=== PATIENT | male | born 1950 | race Hispanic/Latino ===

== ENCOUNTER 2018-09-09 09:58 | Emergency (ER) | payer MEDICARE ==
--- NOTE | 2018-09-09 10:14 | ED PDOC ---
Arrival/HPI - General Time Seen by Provider: 09/09/18 10:04 Historian: Patient - History of Present Illness Narrative History of Present Illness (Text): 09/09/18 10:05 68 year old male, with no significant past medical history, presents to the emergency department complaining of left-side facial droop that began 2 days ago. Patient denies any numbness to the face, no leg or arm numbness/weakness, any change in taste sensation, fever, chills, chest pain, shortness of breath, back pain, neck pain, headache, dizziness, or any other complaints. PMD: None Past Medical History - Provider Review Nursing Documentation Reviewed: Yes Family/Social History - Physician Review Nursing Documentation Reviewed: Yes Family/Social History: No Known Family HX Allergies/Home Meds Allergies/Adverse Reactions: Allergies No Known Allergies Allergy (Verified 09/09/18 10:14) Review of Systems - Physician Review All systems were reviewed & negative as marked: Yes - Review of Systems Constitutional: absent: Fevers Cardiovascular: absent: Chest Pain Physical Exam - Physical Exam Narrative Physical Exam (Text): Constitutional: No acute distress. Head: Normocephalic. Atraumatic. Eyes: PERRL. ENT: Moist mucous membranes. Neck: Supple. Cardiovascular: Regular rate. Chest: No tenderness. Respiratory: Clear to auscultation bilaterally. GI: Soft. Nontender. Nondistended. Back: No CVA tenderness. Musculoskeletal: No tenderness or swelling of extremities. Skin: No rash. Neurologic: Alert, Oriented x3. Facial droop left-sided that does not spare the forehead. Otherwise CN II-XII Intact. Extremities motor function 5/5 x4. Sensation to light touch intact bilaterally. Gait normal. Vital Signs Reviewed: Yes Medical Decision Making ED Course and Treatment: 09/09/18 10:05 Impression: 68 year old male presents complaining of left-sided facial droop that began 2 days ago and does not spare the forehead. Plan: -- Prednisone, acyclovir, eye drops, eye ointment for bedtime, ophtho follow up, instructed to return to emergency department immediately for any weakness or other neurological symptoms. - Scribe Statement The provider has reviewed the documentation as recorded by the Francia Xiao Provider Scribe Attestation: All medical record entries made by the Scribe were at my direction and personally dictated by me. I have reviewed the chart and agree that the record accurately reflects my personal performance of the history, physical exam, medical decision making, and the department course for this patient. I have also personally directed, reviewed, and agree with the discharge instructions and disposition. Disposition/Present on Arrival - Present on Arrival Any Indicators Present on Arrival: No - Disposition Have Diagnosis and Disposition been Completed?: Yes Diagnosis: Helm's palsy Disposition: HOME/ ROUTINE Disposition Time: 10:44 Patient Plan: Discharge Condition: STABLE Discharge Instructions (ExitCare): Helm's Palsy Prescriptions: RX: Acyclovir 400 mg PO 5XD #27 tablet Glycerin/Propylene Glycol [Artificial Tears Drops] 1 drop OS Q1H #30 ml Mineral Oil/Petrolatum,White [Systane Nighttime Eye Oint] 1 appl OS QPM #3.5 g RX: Prednisone [Deltasone] 3 tab PO DAILY #21 tablet Referrals: Cristiano Sierra MD [Staff Provider] - Follow up with primary Forms: [employer] [place] ([place]ican)
[2018-09-09 11:05] VITALS: BP 159/87; PULSE 92; RESP 18
[2018-09-09 11:06] VITALS: TEMP 98; O2SAT 97
== END 2018-09-09 11:17 | disposition home or self-care (01) ==
LOC: ED 09:58
DX: G51.0 Bell's palsy (principal)
CPT/HCPCS: 99284; J8499

== ENCOUNTER 2018-11-29 19:27 | Inpatient (IN) | payer MEDICARE, OTHER ==
--- NOTE | 2018-11-29 20:26 | ED PDOC ---
Arrival/HPI - General Chief Complaint: Alcohol Ingestion Time Seen by Provider: 11/29/18 19:43 Historian: Patient - History of Present Illness Narrative History of Present Illness (Text): 11/29/18 20:22 68 year old male, whose past medical history includes brothers's palsy, presents to the emergency department for evaluation, status post, being found by neighbor in basement, possibly intoxicated. Patient had urinated on self. Patient states he currently feels fine. Patient admits to drinking. Patient states he doesn't know how he got on the floor. Patient informs being seen 2 months prior and being treated for brothers's palsy. Patient informs of residual left-sided facial palsy stigmata. Patient denies any headache, chest pain, shortness of breath, focal weakness, back pain, neck pain, or any other complaint. Time/Duration: Prior to Arrival Symptom Onset: Sudden Symptom Course: Unchanged Activities at Onset: Light Past Medical History - Provider Review Nursing Documentation Reviewed: Yes - Infectious Disease Hx of Infectious Diseases: None - Psychiatric Hx Substance Use: No - Anesthesia Hx Anesthesia: No Hx Anesthesia Reactions: No Hx Malignant Hyperthermia: No Family/Social History - Physician Review Nursing Documentation Reviewed: Yes Family/Social History: No Known Family HX Smoking Status: Never Smoked Hx Alcohol Use: No Hx Substance Use: No Allergies/Home Meds Allergies/Adverse Reactions: Allergies No Known Allergies Allergy (Verified 09/09/18 10:14) Review of Systems - Physician Review All systems were reviewed & negative as marked: Yes - Review of Systems Respiratory: absent: SOB Cardiovascular: absent: Chest Pain Musculoskeletal: absent: Back Pain, Neck Pain Neurological: Facial Droop (chronic). absent: Focal Weakness Physical Exam Vital Signs Reviewed: Yes Vital Signs Temp Pulse Resp BP Pulse Ox 11/29/18 19:39 98.3 F 106 H 18 172/77 H 95 Temperature: Afebrile Blood Pressure: Hypertensive Pulse: Tachycardic Respiratory Rate: Normal Appearance: Positive for: Well-Appearing, Non-Toxic, Comfortable Pain Distress: None Mental Status: Positive for: Alert and Oriented X 3 Finger Stick Blood Glucose: 108 - Systems Exam Head: Present: Atraumatic, Normocephalic Pupils: Present: PERRL Extroacular Muscles: Present: EOMI Conjunctiva: Present: Normal Ears: Present: NORMAL TM Mouth: Present: Moist Mucous Membranes Neck: Present: Normal Range of Motion Respiratory/Chest: Present: Clear to Auscultation, Good Air Exchange. No: Respiratory Distress, Accessory Muscle Use Cardiovascular: Present: Regular Rate and Rhythm, Normal S1, S2. No: Murmurs Abdomen: No: Tenderness, Distention, Peritoneal Signs Back: Present: Normal Inspection Upper Extremity: Present: Normal Inspection. No: Cyanosis, Edema Lower Extremity: Present: Normal Inspection. No: Edema Neurological: Present: GCS=15, CN II-XII Intact, Speech Normal, Motor Func Grossly Intact, Normal Sensory Function, Other (Left-sided facial droop invlolving left-sided frontalis muscle consistent with brothers's palsy) Skin: Present: Warm, Dry, Normal Color. No: Rashes Psychiatric: Present: Alert, Oriented x 3, Normal Insight, Normal Concentration Medical Decision Making ED Course and Treatment: 11/29/18 20:31 Impression: 68 year old male presents status post being found on fall Plan: -- CT Head -- EKG -- CMP, Chem -- CBC, Platelets -- Chest X-ray -- Urinalysis -- Reassess and disposition Prior Visits: Notes and results from previous visits were reviewed. Patient last seen on 09/09/18, and was diagnosed with a brothers's palsy. Patient was discharged with medication. Progress Notes: 11/29/18 20:34 EKG Reviewed by me, shows: Sinus tachycardia @ 104bpm No acute changes 11/29/18 23:14 CT Head without Intravenous Contrast. CLINICAL HISTORY: Possible syncope, fall TECHNIQUE: Axial computed tomography images of the head/brain without intravenous contrast. 1117.51 mGy-cm COMPARISON: None provided. FINDINGS: BRAIN There is moderate periventricular deep and subcortical white matter hypodensity, compatible with moderate microvascular ischemic change. No evidence for acute intracranial hemorrhage. VENTRICLES: There is mild prominence of ventricles and sulci compatible with mild atrophy. ORBITS: The orbits are unremarkable. SINUSES AND MASTOIDS: Mild mucosal thickening of the anterior ethmoid air cells bilaterally. BONES: No evidence for displaced calvarial fracture. SOFT TISSUES: There is left supraorbital soft tissue swelling and a small cystic lesion measuring 1.4 cm in this region. This may represent hematoma. Mild mucosal thickening of both maxillary sinuses. MISCELLANEOUS: No evidence for acute territorial infarction. IMPRESSION: 1. No evidence for acute intracranial abnormality. 2. Moderate white matter ischemic disease. Mild atrophy. 2. There is left supraorbital subcutaneous soft tissue swelling and a small cystic lesion measuring 1.4 cm in this region. This may represent hematoma. 3. Additional and incidental findings as described. 11/30/18 00:[address] Masterson who accepts patient for alcohol intoxication and syncope - RAD Interpretation Radiology Orders: 11/29/18 19:48 HEAD W/O CONTRAST [CT] Stat CHEST PORTABLE [RAD] Stat - Scribe Statement The provider has reviewed the documentation as recorded by the Elvinibevelia Grey Provider Scribe Attestation: All medical record entries made by the Scribe were at my direction and personally dictated by me. I have reviewed the chart and agree that the record accurately reflects my personal performance of the history, physical exam, medical decision making, and the department course for this patient. I have also personally directed, reviewed, and agree with the discharge instructions and disposition. Disposition/Present on Arrival - Present on Arrival Any Indicators Present on Arrival: No History of DVT/PE: No History of Uncontrolled Diabetes: No Urinary Catheter: No History of Decub. Ulcer: No History Surgical Site Infection Following: None - Disposition Have Diagnosis and Disposition been Completed?: Yes Diagnosis: Alcohol intoxication, Syncope Disposition: HOSPITALIZED Disposition Time: 00:05 Patient Plan: Observation Patient Problems: Current Active Problems Problem Status Onset Alcohol intoxication Acute Syncope Acute Condition: STABLE Discharge Instructions (ExitCare): Syncope (ED) Forms: [employer] (Gibralt[place])
[2018-11-29 20:41] LABS: HEMOGLOBIN 16.2 g/dL (14.0-18.0); MEAN CELL VOLUME 94.8 fl (80.0-105.0); MEAN CORPUSCULAR HEMOGLOBIN 33.8 pg (25.0-35.0); MEAN CORPUSCULAR HGB CONC 35.7 g/dl (31.0-37.0); MEAN PLATELET VOLUME 9.2 fl (7.0-11.0); RBC 4.79 10^6/uL (3.5-6.1); RED CELL DISTRIBUTION WIDTH 13.6 % (11.5-14.5); WHITE BLOOD COUNT 9.6 10^3/uL (4.5-11.0)
[2018-11-29 20:46] LABS: INR 1.04; PARTIAL THROMBOPLASTIN TIME 30.8 Seconds (26.9-38.3); PROTHROMBIN TIME 11.5 SECONDS (9.4-12.5)
[2018-11-29 20:57] LABS: ALB/GLOB RATIO 1.4 (1.1-1.8); ALBUMIN 4.5 g/dL (3.0-4.8); ALT/SGPT 17 U/L (7-56); AST/SGOT 36 U/L (17-59); BLOOD UREA NITROGEN 14 mg/dL (7-21); CALCIUM 9.1 mg/dL (8.4-10.5); GFR NON-AFRICAN AMERICAN > 60
[2018-11-29 21:08] LABS: TROPONIN I 0.02 ng/mL
[2018-11-29 21:14] LABS: CK-MB 6.8 ng/mL (0.0-3.6)
--- NOTE | 2018-11-30 00:10 | HP ---
DATE OF EXAM: 11/29/2018 HISTORY OF PRESENT ILLNESS: The patient is a 68-year-old male, came to the emergency room by [facility]. The patient was found by the neighbor that the patient was found on the basement floor. The patient admits to drinking alcohol binging. The patient also has history of Helm's palsy according to the ER triage notes. CODE STATUS: Full code. LIVING WILL ADVANCE DIRECTIVE: None. Height is 6 feet 4 inches. Weight is 300 pounds. BMI is 36.5. HOME MEDICATIONS: Systane nighttime eye ointment, artificial tears, acyclovir, and prednisone which is being given to the patient for Helm's palsy. The patient was seen in the emergency room for the left Helm's palsy about 3 months ago in the emergency room. SOCIAL HISTORY: Positive for alcohol use. Questionable for smoking. OCCUPATIONAL HISTORY: Unknown. FAMILY HISTORY: Not available. PAST MEDICAL AND SURGICAL HISTORY: History of questionable hypertension, history of alcohol dependence, history of alcohol binging, and history of left Helm's palsy. The patient's past medical history is significant for left-sided facial Helm's palsy, history of Helm's palsy in 08/2018. PHYSICAL EXAMINATION: GENERAL: The patient was seen in stretcher in front of this bed #6 in the ER. The patient is lying in the bed. The patient is completely alert, awake, and responsive. Poor personal hygiene. Positive alcohol breath. VITAL SIGNS: T-max 98.3. Telemetry shows heart rate 106, blood pressure 172/77, respirations 18, and O2 sat 95%. HEENT: Head; normocephalic and atraumatic. HEENT examination shows pink conjunctivae. Dry oral mucosa. NECK: No neck rigidity. CHEST: Kyphosis. LUNGS: Show occasional rhonchi upper lung jamil. CARDIOVASCULAR: S1 and S2, regular rhythm with questionable soft systolic murmur left sternal border, left second intercostal space, right second intercostal space. Questionable soft systolic murmur. ABDOMEN: Obese. Positive bowel sounds. Mild epigastric periumbilical tenderness. No palpable hepatosplenomegaly. GENITALIA: Male. RECTAL: Deferred. EXTREMITIES: Shows some swelling of the lower extremity. No pitting edema noted. MUSCULOSKELETAL: Shows a body mass index of 37. NEUROLOGIC: The patient is alert, awake, responsive, and follows command. Moves upper and lower extremity without assistance. Gait examination is not tested. DIAGNOSTIC DATA: CBC from 11/29/2018 within normal limit. PT/PTT is normal. Chemistry significant for CO2 of 20. CPK is 689. Troponin is negative. LFTs are normal. BUN and creatinine is 14 and 0.1. Urine drug screen pending. Alcohol level 191. The patient's EKG is pending. CT of the head was done after the evaluation by the ER physician. CAT scan of the head was done, which was reviewed. The preliminary readings were reviewed for the CAT scan. The patient was seen by the emergency room physician. IMPRESSION AND PLAN: 1. Questionable syncope versus fall. 2. Questionable urinary incontinence. 3. Acute alcohol intoxication and dependence. 4. History of left Helm's palsy. 5. Left facial and nasolabial fold flattening. 6. Sinus tachycardia. 7. Poor personal hygiene. 8. Hypertension. 9. Rhabdomyolysis with elevated CPK. 10. Acute alcohol intoxication with alcohol level of 191. 11. Moderate microvascular ischemic disease of the brain with periventricular deep and subcortical white matter hypodensities. 12. Ventriculomegaly with cerebral cortical atrophy of the brain. 13. Ethmoid air cell mucosal thickening. 14. Left supraorbital soft tissue swelling and cystic lesion, possible left supraorbital hematoma. 15. Bilateral maxillary sinus mucosal thickening. 16. Status post fall. 17. Questionable syncope. 18. Questionable alcohol-related seizure. 19. Alcohol use disorder. Plan at this time, the patient is pending further ER evaluation . After further ER evaluation, the patient will be considered for admission to telemetry unit with neuro checks and seizure precautions. The patient will be started on alcohol withdrawal protocol and CIWA protocol. Neuro checks and seizure precautions will be ordered. The patient will be observed for delirium tremens. At present, the patient is awaiting for a telemetry bed and further evaluation.. The patient's further management will be dependent upon the patient's clinical condition, hemodynamic status, and as per the patient response to therapeutic intervention, as per the patient's diagnostic test results, and as per recommendation by all the physician involved in the care of the patient. In addition, the patient will undergo further diagnostic therapeutic intervention and Neurology consultation. The patient will be considered for EEG of the brain, vitamin B12, folate, drug screen will be ordered, lipid panel will be ordered, thyroid panel will be ordered, RPR will be ordered, EEG will be ordered, carotid Dopplers will be ordered, echocardiogram will be ordered, and MRI and MRA of the brain will be ordered. Neurology and Cardiology consultation will be ordered. At present, the patient was seen and examined in front of the stretcher 6. The patient is on a desk stretcher. Dictated and electronically signed, not read. Fritz Masterson MD
--- NOTE | 2018-11-30 02:01 | CP.PCM.HP ---
History of Present Illness - History of Present Illness History of Present Illness: Marielena Segura, PGY2, H&P for Dr Masterson: CC: fall 68 year old male, with PMH alcoholism, HTN, left sided brothers's palsy, presents for fall at 5 PM today. He had a pint of vodka and 1 beer prior to the fall. Patient states that he was going down the stairs, and just remembers waking up after the syncopal episode. Patient does not recall how long he was down. Patient's neighbor called the ambulance and helped patient wake up. Upon waking up, patient states that he urinated upon himself. Denies tongue biting, shaking movements of her extremities, focal deficits, slurred speech, headache, nausea, vomiting, chest pain, sob, back pain. 12 point ROS obtained and negative, except as per HPI. 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 Drink 1 pint of vodka daily for past 3-4 years, smokes 4 cigars for past 10 years. Earlier, smoked 1 ppd for 25 years. Denies current recreational drug use. PMD: none Present on Admission - Present on Admission Any Indicators Present on Admission: No History of DVT/PE: No History of Uncontrolled Diabetes: No Urinary Catheter: No Decubitus Ulcer Present: No Review of Systems - Review of Systems All systems: reviewed and no additional remarkable complaints except Review of Systems: as per HPI Past Patient History - Infectious Disease Hx of Infectious Diseases: None - Past Social History Smoking Status: Never Smoked - PSYCHIATRIC Hx Substance Use: No - SURGICAL HISTORY Hx Surgeries: No - ANESTHESIA Hx Anesthesia: No Hx Anesthesia Reactions: No Hx Malignant Hyperthermia: No Meds Allergies/Adverse Reactions: Allergies Allergy/AdvReac Type Severity Reaction Status Date / Time No Known Allergies Allergy Verified 09/09/18 10:14 Physical Exam - Constitutional Appears: Non-toxic, No Acute Distress - Head Exam Head Exam: NORMOCEPHALIC Additional comments: + left supraorbital protuberance/likely hematoma - Eye Exam Eye Exam: EOMI, PERRL. absent: Conjunctival injection, Nystagmus, Scleral icterus Pupil Exam: NORMAL ACCOMODATION, PERRL. absent: Irregular, Unequal - ENT Exam ENT Exam: Mucous Membranes Dry - Neck Exam Neck exam: Positive for: Full Rom - Respiratory Exam Respiratory Exam: Clear to Auscultation Bilateral, NORMAL BREATHING PATTERN. absent: Accessory Muscle Use, Rhonchi, Wheezes - Cardiovascular Exam Cardiovascular Exam: RRR, +S1, +S2. absent: Systolic Murmur - GI/Abdominal Exam GI & Abdominal Exam: Normal Bowel Sounds, Soft. absent: Distended, Organomegaly, Rebound, Tenderness - Extremities Exam Extremities exam: Positive for: normal inspection. Negative for: calf tenderness, pedal edema - Back Exam Back exam: NORMAL INSPECTION - Neurological Exam Neurological exam: Alert, Oriented x3 - Psychiatric Exam Psychiatric exam: Normal Affect - Skin Skin Exam: Dry, Normal Color, Warm Results - Vital Signs Recent Vital Signs: Last Vital Signs Temp 98.3 F 11/30/18 01:07 Pulse 100 H 11/30/18 01:07 Resp 18 11/30/18 01:07 BP 153/92 H 11/30/18 01:07 Pulse Ox 96 11/30/18 01:07 - Labs Result Diagrams: 11/29/18 20:30 11/29/18 20:30 Labs: Laboratory Results - last 24 hr 11/29/18 11/29/18 11/29/18 20:30 20:30 20:30 WBC RBC Hgb Hct MCV MCH MCHC RDW Plt Count MPV PT 11.5 INR 1.04 APTT 30.8 Sodium 143 Potassium 3.7 Chloride 109 H Carbon Dioxide 20 L Anion Gap 17 BUN 14 Creatinine 1.0 Est GFR ( Amer) > 60 Est GFR (Non-Af Amer) > 60 Random Glucose 101 Calcium 9.1 Total Bilirubin 0.5 AST 36 ALT 17 Alkaline Phosphatase 86 Lactate Dehydrogenase 548 Total Creatine Kinase 689 H CK-MB (CK-2) 6.8 H CK-MB (CK-2) % 1.0 L Troponin I 0.02 Total Protein 7.7 Albumin 4.5 Globulin 3.2 Albumin/Globulin Ratio 1.4 Alcohol, Quantitative 191 H 11/29/18 20:30 WBC 9.6 RBC 4.79 Hgb 16.2 Hct 45.4 MCV 94.8 MCH 33.8 MCHC 35.7 RDW 13.6 Plt Count 240 MPV 9.2 PT INR APTT Sodium Potassium Chloride Carbon Dioxide Anion Gap BUN Creatinine Est GFR ( Amer) Est GFR (Non-Af Amer) Random Glucose Calcium Total Bilirubin AST ALT Alkaline Phosphatase Lactate Dehydrogenase Total Creatine Kinase CK-MB (CK-2) CK-MB (CK-2) % Troponin I Total Protein Albumin Globulin Albumin/Globulin Ratio Alcohol, Quantitative Assessment & Plan - Assessment and Plan (Free Text) Assessment: This is a 68 year old male with PMH HTN, alcohol dependence, Brothers's palsy, is here for fall, alcohol intoxication: Fall: 2/2 likely alcohol intoxication vs mechanical fall vs neurocardiogenic vs arrhythmia vs carotid stenosis vs cva - EKG shows: Sinus tachycardia @ 104bpm. No acute changes. - CT head shows no acute intracranial abnormalities. Left supraorbital soft tissue swelling and a small cystic lesion measuring 1.4 cm in this region - hematoma? - Orthostatic vitals, MRI brain, MRA head, carotid and vertebral duplex, EEG, Echo - neurochecks - CXR negative. - Neurology consulted. f/u recs. - Cardiology consulted. F/u recs. - tele monitoring Alcohol intoxication/withdrawal: - Elevated alcohol level on admission - Librium 25 PO q4 prn, Ativan 1 IV q4 prn - Banana bag - MVT, thiamine, folate - CIWA protocol - seizure, aspiration precautions - monitor Elevated CPK: - patient relays a history of fall. - CPK 689 - Banana bag @ 100 cc/hr - monitor CPK in AM. PPX: Lovenox subq, protonix. Case seen and discussed with Dr Masterson.
[2018-11-30 02:13] LABS: URINE BILIRUBIN NEGATIVE (NEGATIVE); URINE BLOOD MODERATE (NEGATIVE); URINE GLUCOSE (UA) NEGATIVE (NEGATIVE); URINE LEUKOCYTE ESTERASE MODERATE Leu/uL (NEGATIVE); URINE PROTEIN NEGATIVE mg/dL (<30 mg/dL); URINE UROBILINOGEN 0.2 E.U./dL (<1 E.U./dL)
[2018-11-30 02:20] LABS: URINE APPEARANCE CLOUDY (CLEAR); URINE COLOR YELLOW (YELLOW)
[2018-11-30 02:26] LABS: URINE BACTERIA MANY /hpf; URINE EPITHELIAL CELLS 0 - 2 /hpf (0-5); URINE WBC 15 - 20 /hpf (0-6)
[2018-11-30] MEDS: Folic Acid 1 MG, Thiamine 100 MG, Multivitamin (MVI) 10 ML in Dextrose 5% In Water 1,00... IV SCH ×2 (02:34→09:40)
[2018-11-30 03:28] LABS: BARBITURATES, UR NEGATIVE (NEGATIVE); BENZODIAZEPINES, UR NEGATIVE (NEGATIVE); OPIATES, UR NEGATIVE (NEGATIVE); PHENCYCLIDINE, UR NEGATIVE (NEGATIVE)
[2018-11-30 04:53] LABS: MEAN CELL VOLUME 94.4 fl (80.0-105.0); MEAN CORPUSCULAR HEMOGLOBIN 33.3 pg (25.0-35.0); MEAN CORPUSCULAR HGB CONC 35.3 g/dl (31.0-37.0); MEAN PLATELET VOLUME 9.3 fl (7.0-11.0); RBC 4.8 10^6/uL (3.5-6.1); RED CELL DISTRIBUTION WIDTH 13.6 % (11.5-14.5); WHITE BLOOD COUNT 11.8 10^3/uL (4.5-11.0)
[2018-11-30 05:11] LABS: LDL CHOLESTEROL 151 mg/dL (0-129)
[2018-11-30 05:12] LABS: TROPONIN I 0.03 ng/mL
[2018-11-30 05:18] LABS: FREE T4 0.86 ng/dL (0.78-2.19)
[2018-11-30 05:43] LABS: ALB/GLOB RATIO 1.3 (1.1-1.8); ALBUMIN 4.6 g/dL (3.0-4.8); ALT/SGPT 27 U/L (7-56); AST/SGOT 108 U/L (17-59); BILIRUBIN,DIRECT 0.2 mg/dL (0.0-0.4); BLOOD UREA NITROGEN 13 mg/dL (7-21); CALCIUM 9.5 mg/dL (8.4-10.5); GFR NON-AFRICAN AMERICAN > 60; HDL CHOLESTEROL 36 mg/dL (29-60)
--- NOTE | 2018-11-30 07:59 | CT ---
Date of service: 11/29/2018 PROCEDURE: CT HEAD WITHOUT CONTRAST. HISTORY: possible syncope COMPARISON: None available. TECHNIQUE: Axial computed tomography images were obtained through the head/brain without intravenous contrast. Radiation dose: Total exam DLP = 1117.51 mGy-cm. This CT exam was performed using one or more of the following dose reduction techniques: Automated exposure control, adjustment of the mA and/or kV according to patient size, and/or use of iterative reconstruction technique. FINDINGS: HEMORRHAGE: No intracranial hemorrhage. BRAIN: No mass effect or edema. Chronic severe microvascular changes are seen in the basal ganglia and periventricular white matter. VENTRICLES: Unremarkable. No hydrocephalus. CALVARIUM: There is a left frontal scalp hematoma. No fracture PARANASAL SINUSES: Unremarkable as visualized. No significant inflammatory changes. MASTOID AIR CELLS: Unremarkable as visualized. No inflammatory changes. OTHER FINDINGS: The report concurs with the preliminary [facility] report IMPRESSION: No acute intracranial findings
[2018-11-30] MEDS: Pantoprazole 40 mg EC Tab PO SCH (08:03)
--- NOTE | 2018-11-30 08:25 | RAD ---
Date of service: 11/30/2018 HISTORY: HTN COMPARISON: No prior. TECHNIQUE: Chest PA and lateral FINDINGS: LUNGS: No active pulmonary disease. PLEURA: No significant pleural effusion identified. No pneumothorax apparent. CARDIOVASCULAR: No aortic atherosclerotic calcification present. Normal cardiac size. No pulmonary vascular congestion. OSSEOUS STRUCTURES: No significant abnormalities. VISUALIZED UPPER ABDOMEN: Normal. OTHER FINDINGS: None. IMPRESSION: No active disease.
[2018-11-30 08:26] LABS: CK MB% 0.4 % (2.5-3.0); CK-MB 20.1 ng/mL (0.0-3.6)
[2018-11-30] MEDS ORDERED: TDAP Vaccine 0.5 mL Syr IM ONE (08:45)
[2018-11-30 10:35] LABS: FREE T4 0.95 ng/dL (0.78-2.19)
[2018-11-30 10:49] LABS: T3 1.19 ng/mL (0.97-1.69)
[2018-11-30] MEDS: Mupirocin 2% Ointment 15 GM TUBE TOP SCH ×2 (11:00→18:01)
[2018-11-30] MEDS: Multivitamin With Minerals Tab PO SCH (11:48)
[2018-11-30] MEDS: Enoxaparin 40 mg Syringe SC SCH (11:48)
[2018-11-30] MEDS: Cefepime 1gm in NS 100ml 1 GM/100 ML BAG IVPB SCH ×3 (12:00→22:10)
[2018-11-30] MEDS ORDERED: Tetanus Immune Globulin 250 Units Inj IM ONE (12:00)
--- NOTE | 2018-11-30 12:07 | CARD ---
APPROVED REPORT Date of service: 11/30/2018 EKG Measurement Heart [id number] <Conclusion> Normal sinus rhythm Prolonged QT Abnormal ECG
--- NOTE | 2018-11-30 12:17 | CARD ---
APPROVED REPORT Date of service: 11/29/2018 EKG Measurement Heart [id number] <Conclusion> Sinus tachycardia Otherwise normal ECG
--- NOTE | 2018-11-30 13:03 | PN ---
DATE: 11/30/2018 SUBJECTIVE: The patient is seen in the emergency room holding area, bed 22. The patient is lying in the bed. PHYSICAL EXAMINATION: GENERAL: The patient is alert, awake, responsive, is able to follow simple commands. VITAL SIGNS: T-max 98.3, heart rate 105, blood pressure 177/97. HEAD: Normocephalic, atraumatic. HEENT: Positive right frontal contusion and bruising noted. LUNGS: Examination shows an occasional upper lung field rhonchi. No crackles, rales or wheezing. CARDIOVASCULAR: Shows S1, S2, tachycardic rhythm. Questionable soft systolic murmur left sternal border, right second intercostal space, left second intercostal space. ABDOMEN: Soft, obese. Positive bowel sound. No palpable hepatosplenomegaly. GENITALIA: Male. RECTAL: Deferred. EXTREMITIES: No pitting edema, no calf tenderness, no Homans' sign. Positive left knee abrasions noted. MUSCULOSKELETAL: Examination shows a body mass index of 36. VITAL SIGNS: T-max 98.3, heart rate 102 to 105, blood pressure 172/77, 153/92, 177 97, respirations 18, O2 sat 96%. LABORATORY DATA: The patient's lab data from November 30 is reviewed. WBC 11.8. Rest of the CBC is within normal limit. Sodium 141, potassium 3.8, chloride 109, CO2 of 20, anion gap 16, BUN 13, creatinine 0.9, GFR greater than 60, glucose 96, calcium 9.5, phosphorus 3.3, magnesium is 1.6, AST is 108. CPK has gone up to 4775. Troponin is 0.03, triglyceride 346, cholesterol 257, LDL 151. PSA is 4.6. Urinalysis, moderate blood, nitrite, many bacteria. Urine drug screen was negative. Alcohol level 191. The patient's chest x-ray, EKG reviewed. IMPRESSION: 1. Questionable syncope, status post fall. 2. Acute alcohol intoxication. 3. Tachycardia. 4. Hypertension. 5. Questionable impending delirium tremens versus alcohol withdrawal. 6. Mild leukocytosis. 7. Hypomagnesemia. 8. Transaminitis versus alcoholic hepatitis. 9. Rhabdomyolysis with elevated CPK of 4775. 10. Hypertriglyceridemia, hypercholesteremia with elevated LDL. 11. Elevated PSA of 4.6. 12. Questionable urinary tract infection with microscopic hematuria, pyuria, bacteriuria. 13. Acute alcohol intoxication. 14. Frontal forehead and left knee abrasion. 15. Unwitnessed fall versus questionable syncope. 16. Chronic severe microvascular ischemic disease of the basal ganglia and periventricular white matter. 17. Left frontal scalp hematoma. 18. Sinus tachycardia. 19. Gait dysfunction. 20. Deconditioned. PLAN: At this time, the patient has been ordered serial labs. Daily CPK, troponin has been ordered. The patient is awaiting for a telemetry bed. Repeat CPK and troponin has been ordered for the morning. Serial CMP, LFT, magnesium, phosphorus ordered, magnesium sulfate rider ordered, urine cultures ordered. Current consultation, Neurology, Cardiology, Psychiatry. TCU evaluation ordered. RPR and Lyme titers ordered. The patient is on Ativan 1 mg IV every 4 hours p.r.n., Bactroban cream to the affected area, Boostrix vaccine ordered, clonidine 0.1 mg every 4 hours p.r.n., Colace 100 three times a day, Desyrel 50 at bedtime p.r.n., Ecotrin 81 mg daily, folic acid 1 mg daily, Haldol 2 mg IM every 8 hours p.r.n., Librium 25 mg p.o. every 4 hours p.r.n., Lovenox 40 mg subcu daily magnesium sulfate 2 g rider x2 doses ordered, cefepime 1 g IV every 8 hours ordered for possible urinary tract infection, Protonix 40 mg daily. The patient is started on IV fluid 0.9 normal saline at 150 mL an hour, multivitamin 1 tablet daily Tylenol p.r.n., Valium 5 mg p.o. every 8 hours p.r.n., thiamine 100 mg daily, Zofran 4 mg IV every 4 hours p.r.n. The patient has completed banana bag of 1 liter. The patient has been ordered carotid vertebral Doppler, MRI, MRA of the brain, EKG, repeat echo with Doppler EEG ordered. The patient is on heart-healthy diet. The patient has been ordered SCDs. SAMMIE stockings, occupational therapy, physical therapy ordered. The patient's echo with Doppler EEG has been ordered. The patient has been ordered physical therapy, occupational therapy, ambulation therapy, gait training. The patient's further management will be dependent upon the patient's clinical condition, hemodynamic status and as per the patient's response to therapeutic intervention, as per the patient's diagnostic test results and as per recommendation by all the physicians involved in the care of the patient. Dictated and electronically signed, not read. Fritz Masterson MD
[2018-11-30 13:31] LABS: FOLATE 3.9 ng/mL
[2018-11-30] MEDS: Sodium Chloride 0.9% 1,000 ML IV SCH ×2 (13:38→22:12)
[2018-11-30] MEDS: Magnesium Sulfate 2 gm/50 ml 2 GM/50 ML BAG IVPB SCH ×2 (14:32→15:52)
[2018-11-30] MEDS ORDERED: Ergocalciferol 50,000 Intl Units Cap PO SCH (14:45)
--- NOTE | 2018-11-30 15:13 | CARD ---
APPROVED REPORT Date of service: 11/30/2018 EXAM: Two-dimensional and M-mode echocardiogram with Doppler and color Doppler. INDICATION Syncope 2D DIMENSIONS Left Atrium (2D)4.9 (1.6-4.0cm)IVSd1.6 (0.7-1.1cm) LVDd4.5 (3.9-5.9cm)PWd1.4 (0.7-1.1cm) LVDs3.0 (2.5-4.0cm)FS (%) 33.8 % LVEF (%)62.8 (>50%) M-Mode DIMENSIONS Aortic Root3.00 (2.2-3.7cm)Aortic Cusp Exc.2.30 (1.5-2.0cm) Aortic Valve AoV Peak Knwlwuph799.0cm/Dale Peak GR.8mmHg Mitral Valve MV E Rjjegojp96.7cm/sMV A Ucorgwvf674.0cm/sE/A ratio0.6 TDI E/Lateral E'0.0E/Medial E'0.0 LEFT VENTRICLE The left ventricle is normal size. There is mild concentric left ventricular hypertrophy. The left ventricular function is normal. The left ventricular ejection fraction is within the normal range. There is normal LV segmental wall motion. Transmitral Doppler flow pattern is Grade I-abnormal relaxation pattern. RIGHT VENTRICLE The right ventricle is normal size. The right ventricle is mildly hypertrophied. The right ventricular systolic function is normal. ATRIA The left atrium is mildly dilated. The right atrium size is normal. AORTIC VALVE The aortic valve is not well visualized. No aortic regurgitation is present. There is no aortic valvular stenosis. MITRAL VALVE The mitral valve is not well visualized. There is no mitral valve regurgitation noted. There is no mitral valve stenosis. TRICUSPID VALVE The tricuspid valve is normal in structure. There is no tricuspid valve regurgitation noted. GREAT VESSELS The aortic root is normal in size. The IVC is normal in size and collapses >50% with inspiration. PERICARDIAL EFFUSION There is a trace pericardial effusion. <Conclusion> Poor Echo window There is mild concentric left ventricular hypertrophy. The left ventricular function is normal. The left ventricular ejection fraction is within the normal range. There is normal LV segmental wall motion. Transmitral Doppler flow pattern is Grade I-abnormal relaxation pattern.
--- NOTE | 2018-11-30 18:38 | CON ---
DATE: 11/30/2018 NEUROLOGY CONSULTATION CHIEF COMPLAINT: Status post fall and syncope. HISTORY OF PRESENT ILLNESS: This is a 68-year-old man with history of chronic alcoholism, hypertension, left Helm's palsy, had a fall at 5 p.m yesterday when he had bathroom prior to his fall. He was going downstairs and waking up after syncopal episode, does not recall how he fell down. Currently, his CAT scan has showed no acute intracranial abnormalities. He denies any generalized tonic-clonic movements. It seems like he had syncopal motion from dehydration and acute alcohol intoxication. His labs, his alcohol level was 191. PAST MEDICAL HISTORY: As above. SOCIAL HISTORY: Drinks daily and he is a occasional smoker. No illicit drug use. FAMILY HISTORY: Noncontributory. ALLERGIES: NO KNOWN DRUG ALLERGIES. MEDICATIONS: Reviewed by nurses' reconciliation sheet. REVIEW OF SYSTEMS: Fourteen-point review of systems is negative except as per the HPI. LABORATORY DATA: Sodium is 141, potassium is 3.8, chloride is 109, carbon dioxide is 20, BUN of 13, creatinine 0.9, and random glucose 96. Triglycerides 347, cholesterol 257, LDL is 451, and vitamin D is 28.4 low. PHYSICAL EXAMINATION: GENERAL: The patient is seen up in bed in no acute distress. VITAL SIGNS: Temperature 98.2, pulse rate 100, blood pressure 153/92, respiratory rate 18, and oxygen saturation 97% on room air. HEENT: Head is atraumatic and normocephalic. PERRLA. Extraocular muscles intact. NECK: Supple. No JVD. No adenopathy noted. LUNGS: Clear to auscultation. No adventitious sounds. HEART: S1 and S2, normal rate and rhythm. No murmur, rubs, or gallops. ABDOMEN: Soft and nontender. Bowel sounds present. EXTREMITIES: No clubbing and no cyanosis. Peripheral pulses are 2+ bilaterally NEUROLOGIC: The patient is alert and oriented to person, place, month and year. Speech is fluent without any errors. Cranial nerves II through XII are intact. Motor exam; moves all extremities equally. Toes are downgoing bilaterally. Sensory exam; light touch, pinprick, proprioception and vibration are intact. decreased pinprick up to the calves bilaterally. Decreased vibration of the toes. DTRs are 2+ throughout and 1 at both knees and ankles. Coordination; [id number] is intact. No dysmetria noted. Gait is deferred for now. ASSESSMENT AND PLAN: This is a 68-year-old man with history of hypertension, alcohol dependence, left Helm's palsy in the past, status post fall, which is likely vasovagal syncope with a possible mechanical component from acute alcohol intoxication unlikely a seizure. RECOMMENDATIONS: At this time we recommend; 1. Orthostatic vital signs. 2. Fluid hydration. 3. Multiple vitamins, folate, and thiamine 100 mg p.o. daily. 4. Delirium precautions. 5. Librium 25 mg p.o. every 4 hours p.r.n. for alcohol withdrawal. No need for any unlikely an syncopal unlikely an epileptic event and recommended sleep hygiene. Thank you for this consult. Heber Liang MD
--- NOTE | 2018-11-30 20:34 | US ---
PROCEDURE: Carotid artery duplex ultrasound HISTORY: Carotid stenosis PHYSICIAN(S): Mason Ca MD. TECHNIQUE: Duplex sonography and color-flow Doppler were used to evaluate the carotid bifurcations and limited segments of the vertebral arteries bilaterally. FINDINGS: There is moderate to extensive smooth heterogeneous plaque noted at the carotid bifurcations bilaterally, greater on the left than the right. The peak systolic velocity in the proximal right internal carotid artery is 66 cm/sec. This corresponds to a 20 to 39% proximal right ICA stenosis. Normal systolic velocities are noted in the proximal right external carotid artery. There is antegrade flow in the small right vertebral artery. The peak systolic velocity in the proximal left internal carotid artery is 295 cm/sec. The end-diastolic velocity at this location is 81 cm/second. This corresponds to a 80 percent proximal left ICA stenosis. Normal systolic velocities are noted in the proximal left external carotid artery. There is blunted antegrade flow in the small left vertebral artery. IMPRESSION: 1. 80 percent proximal left ICA stenosis. This can be confirmed with CTA, MRA with jona, or conventional arteriography if clinically indicated 2. 20-39 percent proximal right ICA stenosis 3. Antegrade flow in bilateral small vertebral arteries
[2018-11-30 22:17] VITALS: BMI 36.5
[2018-11-30] MEDS ORDERED: Influenza Vaccine 60 mcg/0.5 mL SYR (4YR UP) IM ONE (22:17)
[2018-11-30] MEDS ORDERED: Pneumococcal 23-Valent Vaccine IM ONE (22:17)
[2018-12-01] MEDS: Cefepime 1gm in NS 100ml 1 GM/100 ML BAG IVPB SCH ×3 (06:50→21:06)
[2018-12-01] MEDS: Pantoprazole 40 mg EC Tab PO SCH (06:50)
[2018-12-01 07:11] LABS: TROPONIN I < 0.01 ng/mL
[2018-12-01 07:31] LABS: ALB/GLOB RATIO 1.2 (1.1-1.8); ALT/SGPT 36 U/L (7-56); AST/SGOT 104 U/L (17-59); BILIRUBIN,DIRECT 0.2 mg/dL (0.0-0.4); BLOOD UREA NITROGEN 15 mg/dL (7-21); CALCIUM 8.9 mg/dL (8.4-10.5); GFR NON-AFRICAN AMERICAN > 60
[2018-12-01] MEDS ORDERED: Potassium Chloride 40 mEq/30 ml LIQ UD PO ONE (08:23)
[2018-12-01 08:24] LABS: CK MB% 0.3 % (2.5-3.0); CK-MB 6.2 ng/mL (0.0-3.6)
[2018-12-01] MEDS ORDERED: Gadodiamide 287 MG/ML VIAL (20ML) IV ONE (09:38)
--- NOTE | 2018-12-01 10:05 | CARD ---
APPROVED REPORT Date of service: 12/01/2018 EKG Measurement Heart [id number] <Conclusion> Normal sinus rhythm Prolonged QT Abnormal ECG
[2018-12-01] MEDS: Multivitamin With Minerals Tab PO SCH (10:49)
[2018-12-01] MEDS: Enoxaparin 40 mg Syringe SC SCH (10:49)
[2018-12-01] MEDS: Mupirocin 2% Ointment 15 GM TUBE TOP SCH ×4 (10:51→17:07)
[2018-12-01] MEDS: Sodium Chloride 0.9% 1,000 ML IV SCH ×2 (12:02→23:46)
--- NOTE | 2018-12-01 13:17 | MRI ---
Date of service: 12/01/2018 PROCEDURE: MRI BRAIN WITH AND WITHOUT CONTRAST HISTORY: SYNCOPE COMPARISON: None available. TECHNIQUE: Multiplanar, multisequence MR images of the brain were obtained with and without intravenous contrast enhancement. 20 cc of Omniscan FINDINGS: HEMORRHAGE: None DWI: No evidence of an acute or early subacute infarction. BRAIN PARENCHYMA: No mass,mass effect or edema. Severe chronic microvascular changes are seen in the periventricular white matter and deep white matter. Microvascular changes are also seen in the neno. No acute findings. ENHANCEMENT: No abnormal intracranial enhancement. VENTRICLES: Unremarkable. No hydrocephalus. CRANIUM: Unremarkable. ORBITS: Grossly unremarkable. PARANASAL SINUSES/MASTOIDS: Clear VASCULAR SYSTEM: Skull base flow voids intact. OTHER FINDINGS: None . IMPRESSION: No acute intracranial findings.
--- NOTE | 2018-12-01 13:19 | MRI ---
Date of service: 12/01/2018 PROCEDURE: Magnetic Resonance Angiography Brain HISTORY: SYNCOPE COMPARISON: None available. TECHNIQUE: 3D time of flight MR angiography of the intracranial arteries was performed. Rotating maximum intensity projection images were generated. FINDINGS: INTERNAL CAROTID ARTERIES: Unremarkable. The skull base, petrous, cavernous and supraclinoid segments are bilaterally widely patient. ANTERIOR CEREBRAL ARTERIES: Unremarkable. A1 and A2 segments are widely patent. Smaller distal branches unremarkable, as visualized. MIDDLE CEREBRAL ARTERIES: Unremarkable. M1 and M2 segments are widely patent. Perisylvian branches grossly symmetric. POSTERIOR CIRCULATION: Basilar Artery: Unremarkable. Distal Vertebral Arteries: Unremarkable. Posterior Cerebral Arteries: Unremarkable. Posterior Inferior Cerebellar Arteries: Unremarkable. ANEURYSM/ VASCULAR MALFORMATIONS: None. OTHER FINDINGS: None. IMPRESSION: Unremarkable MR angiography of the brain.
--- NOTE | 2018-12-01 13:25 | MRI ---
Date of service: 12/01/2018 PROCEDURE: MR Angiography of the neck with and without contrast HISTORY: LEFT ICAS COMPARISON: Doppler ultrasound 11/30/2018 TECHNIQUE: Contrast enhanced and [id number] angiography of the neck was performed. Rotating 3D maximum intensity projection images of the cervical carotid and vertebral arteries were generated. 20 cc of Omniscan FINDINGS: RIGHT CAROTID ARTERIES: There is a mild stenosis of the proximal right internal carotid. The degree of stenosis is less than 40 percent. LEFT CAROTID ARTERIES: There is a moderate to severe stenosis of the proximal left internal carotid over a 12 mm segment. The degree of stenosis is probably greater than 80 percent. VERTEBRAL ARTERIES: Right Vertebral Artery: Normal. Left Vertebral Artery: Diffusely narrow left vertebral OTHER FINDINGS: None. IMPRESSION: There is a moderate to severe stenosis of the proximal left internal carotid over a 12 mm segment. The degree of stenosis is probably greater than 80 percent.
--- NOTE | 2018-12-01 14:27 | CP.PCM.PN ---
Subjective - Date & Time of Evaluation Date of Evaluation: 12/01/18 Time of Evaluation: 07:00 - Subjective Subjective: Patient seen and examined at bedside in no acute distress. Patient has no complaints from overnight. Denies fevers, chills, shortness of breath, headache, abdominal pain, nausea, vomiting, diarrhea. Objective - Vital Signs/Intake and Output Vital Signs (last 24 hours): Temp Pulse Resp BP Pulse Ox 97.6 F 71 20 150/88 97 12/01/18 08:30 12/01/18 08:30 12/01/18 08:30 12/01/18 08:30 12/01/18 08:30 Intake and Output: 12/01/18 12/01/18 06:59 18:59 Intake Total 400 Balance 400 - Medications Medications: Current Medications Acetaminophen (Tylenol 325mg Tab) 650 mg PO Q6 PRN PRN Reason: TEMP>=99.5F Acetaminophen (Tylenol 650 Mg Supp) 650 mg RC Q6H PRN PRN Reason: TEMP>=99.5F Aspirin (Ecotrin) 81 mg PO DAILY [facility] Last Admin: 12/01/18 10:50 Dose: 81 mg Chlordiazepoxide (Librium) 25 mg PO Q4H PRN PRN Reason: Withdrawl Last Admin: 11/30/18 11:48 Dose: 25 mg Clonidine HCl (Catapres) 0.1 mg PO Q4H PRN PRN Reason: Symptoms of alcohol withdrawl Last Admin: 11/30/18 17:17 Dose: 0.1 mg Diazepam (Valium) 5 mg PO Q8H PRN PRN Reason: Symptoms of alcohol withdrawl Docusate Sodium (Colace) 100 mg PO TID [facility] Last Admin: 12/01/18 10:49 Dose: 100 mg Enoxaparin Sodium (Lovenox) 40 mg SC DAILY [facility]; Protocol Last Admin: 12/01/18 10:49 Dose: 40 mg Ergocalciferol (Drisdol 50,000 Intl Units Cap) 1 cap PO Q7D [facility] Last Admin: 11/30/18 16:13 Dose: 1 cap Folic Acid (Folic Acid) 1 mg PO DAILY [facility] Last Admin: 12/01/18 10:49 Dose: 1 mg Haloperidol Lactate (Haldol) 2 mg IM Q8H PRN PRN Reason: Agitation Sodium Chloride (Sodium Chloride 0.9%) 1,000 mls @ 150 mls/hr IV .Q6H40M [facility] Last Admin: 12/01/18 12:02 Dose: 150 mls/hr Cefepime HCl (Maxipime 1gm) 1 gm in 100 mls @ 100 mls/hr IVPB Q8 [facility]; Protocol Last Admin: 12/01/18 13:21 Dose: 100 mls/hr Lorazepam (Ativan) 1 mg IVP Q4H PRN PRN Reason: Symptoms of alcohol withdrawl Last Admin: 11/30/18 17:34 Dose: 1 mg Multivitamins/Minerals (Therapeutic-M Tab) 1 tab PO DAILY [facility] Last Admin: 12/01/18 10:49 Dose: 1 tab Mupirocin (Bactroban Ointment) 0 gm TOP TID [facility] Last Admin: 12/01/18 13:21 Dose: Not Given Ondansetron HCl (Zofran Inj) 4 mg IVP Q4H PRN PRN Reason: Nausea/Vomiting Last Admin: 11/30/18 06:48 Dose: 4 mg Pantoprazole Sodium (Protonix Ec Tab) 40 mg PO 0600 [facility] Last Admin: 12/01/18 06:50 Dose: 40 mg Thiamine HCl (Vitamin B1 Tab) 100 mg PO DAILY [facility] Last Admin: 12/01/18 10:49 Dose: 100 mg Trazodone HCl (Desyrel) 50 mg PO HS PRN PRN Reason: Insomnia Zaleplon (Sonata) 5 mg PO HS PRN PRN Reason: Insomnia - Labs Labs: 11/30/18 04:00 12/01/18 06:30 PT 11.5 SECONDS (9.4-12.5) 11/29/18 20:30 INR 1.04 11/29/18 20:30 APTT 30.8 Seconds (26.9-38.3) 11/29/18 20:30 - Constitutional Appears: Non-toxic, No Acute Distress - Head Exam Head Exam: ATRAUMATIC, NORMAL INSPECTION, NORMOCEPHALIC - Eye Exam Eye Exam: Normal appearance - ENT Exam ENT Exam: Mucous Membranes Moist - Respiratory Exam Respiratory Exam: Clear to Ausculation Bilateral, NORMAL BREATHING PATTERN - Cardiovascular Exam Cardiovascular Exam: REGULAR RHYTHM, +S1, +S2 - GI/Abdominal Exam GI & Abdominal Exam: Soft, Normal Bowel Sounds - Extremities Exam Additional comments: abrasion to knees bilaterally - Neurological Exam Neurological Exam: Alert, Awake, Oriented x3 - Psychiatric Exam Psychiatric exam: Normal Affect, Normal Mood - Skin Skin Exam: Abrasion (kness bilaterally) Assessment and Plan - Assessment and Plan (Free Text) Assessment: This is a 68 year old male with PMH HTN, alcohol dependence, Helm's palsy, is here for fall, alcohol intoxication: Fall: 2/2 likely alcohol intoxication vs mechanical fall vs neurocardiogenic vs arrhythmia vs carotid stenosis vs cva - EKG shows: Sinus tachycardia @ 104bpm. No acute changes. - CT head shows no acute intracranial abnormalities. Left supraorbital soft tissue swelling and a small cystic lesion measuring 1.4 cm in this region - hematoma - neurochecks - CXR negative. - Neurology consulted. f/u recs. - Cardiology consulted. F/u recs. - Brain MRI reveals no acute inracranial findins - Carotid US and MRA reveal moderate-severe stenosis of proximal left ICA >80% Alcohol intoxication/withdrawal: - Elevated alcohol level on admission - Librium 25 PO q4 prn, Ativan 1 IV q4 prn - MVT, thiamine, folate - CIWA protocol - seizure, aspiration precautions - monitor Elevated CPK: - Continue to monitor CPK in AM. Bilateral knee abrasions -Bactroband to knees PPX: Lovenox subq, protonix. Case seen and discussed with Dr Masterson.
--- NOTE | 2018-12-01 14:55 | PN ---
DATE: 12/01/2018 SUBJECTIVE: The patient is seen in room 360, bed 1. The patient is seen sitting up in the bed. The patient denies any syncope or loss of consciousness. PHYSICAL EXAMINATION GENERAL: The patient is alert, awake, oriented . VITAL SIGNS: T-max 97.6, pulse 65-71, blood pressure 150/88. Orthostatic vitals were done today; lying blood pressure , sitting 168/88, standing 172/87, respiration 20 and O2 sat 97%. HEENT: Head examination normocephalic and atraumatic. HEENT examination shows pink conjunctivae. Anicteric sclerae. No oropharyngeal lesion. No neck rigidity. Positive questionable were carotid bruit noted. CHEST: Kyphosis. LUNGS: Shows no audible crackle, rales or wheezing. CARDIOVASCULAR: Shows S1, S2. Questionable soft systolic murmur left sternal border, right second intercostal space, left second intercostal space. ABDOMEN: Morbidly obese. No palpable hepatosplenomegaly. GENITALIA: Male. RECTAL: Examination is deferred. EXTREMITIES: Positive bilateral knee abrasions noted. Left arm pain. MUSCULOSKELETAL: Examination shows a body mass index of 36.5. Motor strength is 5/5. NEUROLOGIC: The patient is alert, awake, responsive and is able to move upper and lower extremity without assistance. Gait examination is not tested. LABORATORY DATA: Diagnostics on 12/01/2018, abnormal diagnostics, potassium 3.5, AST 104. CPK is down to 2444. Troponin is negative. Vitamin D is 28.4. TSH is 2.13. PSA is 4.6. IMPRESSION: 1. Unwitnessed fall versus unwitnessed syncope. 2. Bilateral knee and frontal forehead contusion and abrasion. 3. Hypertension. 4. Morbid obesity. 5. Tachycardia. 6. Neurosis. 7. Alcohol dependence and abuse. 8. Hypovitaminosis D. 9. Rhabdomyolysis. 10. Hypertriglyceridemia, hypercholesteremia with elevated LDL. 11. Elevated prostate-specific antigen of 4.6. 12. Questionable prediabetes. 13. Hypokalemia. 14. Possible alcoholic transaminitis and alcoholic hepatitis. 15. Microscopic hematuria, pyuria, bacteriuria 16. Acute alcohol intoxication. 17. Gram negative chai urinary tract infection with microscopic hematuria and bacteriuria. 18. Left proximal left internal carotid artery 80% stenosis. 19. Proximal right internal carotid artery 20% to 39% stenosis. 20. Hypertensive cardiovascular disease with left ventricle ejection fraction of . 21. Grade 1 abnormal relaxation pattern. 22. Right ventricular hypertrophy. 23. Unwitnessed fall and on with possible unwitnessed syncope. 24. History of left Helm's palsy. 25. Questionable vasovagal syncope. 26. Acute alcohol intoxication. 27. Possible alcohol hepatitis. PLAN: At this time, the patient has been ordered hepatitis and HIV serologies. Repeat CPKs. Repeat labs ordered. HIV titer is pending. Diabetes titer pending. Final urine culture result pending. Current consultation, Neurology, Cardiology, Psychiatry. Current medications Ativan 1 mg IV every 4 hours p.r.n., Bactroban cream to the affected area of knees, clonidine 0.1 mg p.o. every 4 hours p.r.n., Colace 100 mg three times a day, trazodone 50 mg at bedtime p.r.n., vitamin D 50,000 units weekly, Ecotrin 81 mg daily, folic acid 1 mg daily, Haldol 2 mg IM every 8 hours p.r.n., Librium 25 mg p.o. every 4 hours p.r.n., Lovenox 40 mg subcu daily, Maxipime 1 g IV every 8 hours and nicotine patch 14 mg daily. The patient is ordered potassium 40 mEq . The patient is on GI prophylaxis, IV normal saline at 150. The patient has been ordered Sonata 5 mg at bedtime p.r.n. for insomnia. The patient is on Valium 5 p.o. every 8 hours p.r.n., thiamine 100 mg p.o. daily, Zofran 4 IV every 4 hours. Ultrasound of the abdomen ordered, MRI of the brain, MRA of the brain, MRA of the neck has been pending. The patient is on incentive spirometry, out of bed, SCDs, physical therapy, and occupational therapy all ordered. At present, the patient's further management will be dependent upon the patient's clinical condition, hemodynamic status, as per the patient's response to therapeutic intervention, as per Neurology and Cardiology evaluation. The patient's EEG was ordered, but I am unable to find the results of the EEG. The patient's EEG was canceled by Dr. Liang from Neurology. At present, the patient is awaiting for above diagnostic testing. Reevaluation by Neurology. Cardiology evaluation is also pending.. The patient's further management will be dependent upon the patient's clinical condition, hemodynamic status and as per the patient response to therapeutic intervention as per the patient's diagnostic test results and as per recommendation by all the physician involved in the care of the patient. Dictated and electronically signed, not read. Signing off Fritz Masterson MD. Fritz Masterson MD
--- NOTE | 2018-12-01 14:59 | US ---
Date of service: 12/01/2018 HISTORY: TRANSAMINITIS COMPARISON: None. TECHNIQUE: Sonographic evaluation of the abdomen. FINDINGS: LIVER: Measures 19.0 cm. Hepatopedal blood flow. Fatty infiltration manifest ultrasonographically as increased echogenicity of the liver parenchyma. No mass. No intrahepatic bile duct dilatation. GALLBLADDER: Cholelithiasis. Negative study for gallbladder wall thickening, pericholecystic fluid, sonographic Amanda's sign. COMMON BILE DUCT: Measures 4.3 mm. No stones. No dilatation. PANCREAS: Unremarkable as visualized. No mass. No ductal dilatation. RIGHT KIDNEY: Measures 5.3 x 12.5cm. Normal echogenicity. No calculus, mass, or hydronephrosis. LEFT KIDNEY: Measures 7.5 x 12.7cm. Normal echogenicity. No calculus, mass, or hydronephrosis. SPLEEN: Normal in size and contour. No mass. AORTA: No aneurysmal dilatation. IVC: Unremarkable. OTHER FINDINGS: None. IMPRESSION: Cholelithiasis. No sonographic evidence of acute cholecystitis.
--- NOTE | 2018-12-01 16:01 | CP.PCM.PCO ---
Addendum Addendum: 12/01/18 16:00 consult called for ETOH abuse,which is no indication to see psychiatrist in ED especially pt was seen today, see consult note for more detailed info.
[2018-12-01 16:28] LABS: HEPATITIS B SURFACE AG Negative (NEGATIVE)
--- NOTE | 2018-12-01 16:29 | PN ---
DATE: 12/01/2018 NEUROLOGY FOLLOWUP CHIEF COMPLAINT: Status post syncope, status post fall, and alcohol intoxication. SUBJECTIVE: The patient is seen and examined at the bedside, doing well. MRI of the neck showed moderate severe stenosis proximal left ICA with 12 mm segment, in addition carotid Doppler concurs with the same and was also recommend vascular surgery for possible left carotid endarterectomy and placed on aspirin 81 mg, Plavix 75 mg, and Lipitor 40 mg for coronary artery disease. PAST MEDICAL HISTORY: History of chronic alcoholism, hypertension, dyslipidemia, and left Helm's palsy. SOCIAL HISTORY: Drinks daily, occasional smoker. No illicit drug use. FAMILY HISTORY: Noncontributory. MEDICATIONS: Reviewed by nurses' reconciliation sheet. REVIEW OF SYSTEMS: A 14-point review of systems negative except in the HPI. LABORATORY DATA: Sodium is 140, potassium is 3.5, chloride is 108, carbon dioxide is 24, BUN of 15, creatinine 0.9, and random glucose 103. PHYSICAL EXAMINATION GENERAL: The patient is seen up in bed in no acute distress.. VITAL SIGNS: Temperature 97.6, pulse rate 71, blood pressure 150/80, respiratory rate 20, and oxygen saturation 97% on room air. HEENT: Head is atraumatic and normocephalic. PERRLA. Extraocular muscles intact. NECK: Supple. No JVD. No adenopathy noted. LUNGS: Clear to auscultation. No adventitious sounds. HEART: S1 and S2, normal rate and rhythm. No murmur, rubs, or gallops. ABDOMEN: Soft and nontender. Bowel sounds present. EXTREMITIES: No clubbing and no cyanosis. Peripheral pulses are 2+ bilaterally. NEUROLOGIC: The patient is alert and oriented to person, place, month and year. Speech is fluent without any errors. Cranial nerves II through XII are intact. Motor exam; moves all extremities equally. Toes are downgoing bilaterally. Sensory exam; light touch, pinprick, proprioception and vibration are intact. Decrease vibration of the toes. DTRs are 2+ throughout and 1 at both knees and ankles. Coordination; [id number] is intact. No dysmetria noted. Gait is deferred for now. ASSESSMENT AND PLAN: This is a 68-year-old man with history of hypertension, alcohol dependence, left Helm's palsy, status post fall with possible syncopal event could be likely vasovagal induced versus left carotid endartery disease superimposed on underlying acute alcohol intoxication likely seizure. At this time, his MRI of the brain and MRI of the head showed no acute cranial abnormalities. MRI of the neck and carotid Doppler showed left severe stenosis of the left internal carotid artery measuring by approximately 80% of occlusion. RECOMMENDATIONS: At this time we recommend: 1. Vascular surgery consult for possible left carotid endarterectomy for left carotid artery stenosis more than 80% rather than the stent. 2. Aspirin 81 mg, Plavix 75 mg and Lipitor 40 mg for stroke prevention. 3. Delirium precautions given his history of acute alcoholism and continue with CIWA protocol. Thank you for this followup. Heber Liang MD
[2018-12-01 16:34] LABS: HEPATITIS A IGM NEGATIVE (NEGATIVE); HEPATITIS B CORE AB NEGATIVE (NEGATIVE)
[2018-12-01 16:45] LABS: HEPATITIS C ANTIBODY NEGATIVE (NEGATIVE)
[2018-12-01 20:25] LABS: LYME IGG POSITIVE (NEGATIVE)
[2018-12-01 20:29] LABS: LYME IGM NEGATIVE (NEGATIVE)
--- NOTE | 2018-12-01 21:57 | CON ---
DATE OF CONSULTATION: 12/01/2018 HISTORY OF PRESENT ILLNESS: The patient is a 68-year-old male, history of alcohol use disorder. The patient was admitted on the medical side, status post fall. Psych consult was called for evaluation of alcohol use disorder and possible mood symptoms. The patient was seen and examined today. The patient presented to be alert. The patient has poor insight into his addiction to alcohol. The patient was saying that he was not drunk when he fell, but alcohol level was 191 at the time of emergency room visit. The patient reports that he does not feel depressed. He has history of depression, but never been evaluated by psychiatrist, never been on any psychotropic medication. The patient denied history of being in detoxes or rehab. The patient reported that he lives alone. He has a sister who lives far away from him. The patient reported that at present moment he is not hearing voices, not seeing things. Denied thoughts of harming himself or others. LABORATORY DATA: Labs reviewed. White blood cells elevated at 11.8. Coagulation reviewed. Chemistry reviewed. Potassium 3.5 and chloride 108. CPK was 2444. Urinalysis showed leukocyte esterase. Toxicology reviewed. Serology reviewed. Microbiology showed gram-negative rods in the urine. MENTAL STATUS EXAMINATION: The patient presented to be alert and oriented, pleasant, intermittent eye contact. Mood described, "sometimes I get depressed," but denied any thoughts of harming himself or others. Thought process seems to be coherent. Thought content, the patient denied visual, auditory, or tactile hallucinations. Denied paranoid ideation. The patient denied thoughts of harming himself or others. Denied intent or plan. Insight and judgment into his alcohol addiction is poor. Impulses are well controlled. IMPRESSION: Fall could be related to multiple reasons, infection, as well as alcohol intoxication, but the patient reported that he did not feel that it was related to that fact. PLAN: Multivitamins, thiamine and folic acid were started by medical team. Trazodone was started by medical team for insomnia, but considering the fact that this medication could lower blood pressure as well as could increase risk of falls and the patient was admitted for falls, this writer producer will discontinue that medication. Sonata was offered. The patient is willing to try that medication. Alcohol counseling need to be provided by appropriate services. This writer producer does not feel that the patient is psychotic, does not feel that the patient is disorganized. In regards of multiple medications for alcohol withdrawals, we would choose Librium and discontinue Valium. Naltrexone will be discussed with this patient. Ativan will be continued. We will follow up and advise accordingly. Thank you very much for letting me participate in care of your patient. Hannah Feliciano MD MTDD
[2018-12-02] MEDS: Sodium Chloride 0.9% 1,000 ML IV SCH (05:25)
[2018-12-02] MEDS: Cefepime 1gm in NS 100ml 1 GM/100 ML BAG IVPB SCH (05:26)
[2018-12-02] MEDS: Pantoprazole 40 mg EC Tab PO SCH (05:43)
[2018-12-02 07:00] LABS: ALB/GLOB RATIO 1.3 (1.1-1.8); ALBUMIN 3.9 g/dL (3.0-4.8); ALT/SGPT 30 U/L (7-56); AST/SGOT 72 U/L (17-59); BILIRUBIN,DIRECT 0.2 mg/dL (0.0-0.4); BLOOD UREA NITROGEN 14 mg/dL (7-21); GFR NON-AFRICAN AMERICAN > 60
[2018-12-02 07:09] LABS: CK-MB 3.2 ng/mL (0.0-3.6)
[2018-12-02 07:30] LABS: BASO # 0.02 K/mm3 (0.0-2.0); BASO % 0.3 % (0.0-3.0); EOS # 0.2 (0.0-0.7); EOS % 3.7 % (1.5-5.0); HEMOGLOBIN 14.4 g/dL (14.0-18.0); LYMPH # 1.9 (1.2-3.4); LYMPH % 29.9 % (22.0-35.0); MEAN CELL VOLUME 95.4 fl (80.0-105.0); MEAN CORPUSCULAR HEMOGLOBIN 33.1 pg (25.0-35.0); MEAN CORPUSCULAR HGB CONC 34.7 g/dl (31.0-37.0); MEAN PLATELET VOLUME 9.4 fl (7.0-11.0); MONO # 0.8 (0.1-0.6); MONO % 11.6 % (1.0-6.0); RBC 4.35 10^6/uL (3.5-6.1); RED CELL DISTRIBUTION WIDTH 13.3 % (11.5-14.5); WHITE BLOOD COUNT 6.5 10^3/uL (4.5-11.0)
[2018-12-02 08:12] VITALS: O2SAT 95
--- NOTE | 2018-12-02 08:46 | CP.PCM.CON ---
<Steven Ford - Last Filed: 12/03/18 07:09> History of Present Illness - History of Present Illness History of Present Illness: Neurology Consultation (Dr. Newby's Service) Consulting Physician: Dr. Masterson CC: S/P Fall/Proximal Left ICA Stenosis HPI: Mr. Byrne is a 68 year old male with a past medical history significant for left sided Helm's Palsy, HTN and chronic alcohol abuse who presents after having syncopal episode and falling at his home. Patient reports that he was walking down the stairs at his home and the next thing he remembers is waking up to his neighbor calling the ambulance. He does not recall how long he was down for and denies this ever having happened in the past. Upon waking up, patient reports that he urinated on himself. Of note, patient endorses drinking one pint of liquor and one can of beer prior to this episode. He denies any tonic-clonic movements, tongue biting, slurred speech, auditory/visual aura, focal deficits, headache, changes in his vision, chest pain, palpitations, SOB, or any N/V. Further 12 point ROS obtained and negative except what has been mentioned in HPI. PMH: As stated above PSH: Denies Family History: Reviewed; Non-Contributory Social History: Current light smoker with 25 year pack smoking history; Drinks one pint of liquor (vodka) daily for the past four years; Denies any illicit drug use; Works as a contractor; Lives alone in [place], [place] Allergies: NKDA Home Medications: As per MAR PMD: None Review of Systems - Review of Systems Review of Systems: As stated in HPI, otherwise negative Past Patient History - Infectious Disease Hx of Infectious Diseases: None - Past Social History Smoking Status: Former Smoker - CARDIAC Hx Cardiac Disorders: Yes Hx Hypertension: Yes - PULMONARY Hx Respiratory Disorders: No - NEUROLOGICAL Hx Neurological Disorder: Yes (off balance) Other/Comment: left side of face bells palsey 08/2018 - HEENT Hx HEENT Problems: Yes (pt stated "I need reading glasses.") - RENAL Hx Chronic Kidney Disease: No - ENDOCRINE/METABOLIC Hx Endocrine Disorders: No - HEMATOLOGICAL/ONCOLOGICAL Hx Blood Disorders: No - INTEGUMENTARY Hx Dermatological Problems: Yes Other/Comment: poor hygeine, 1cm round lump on left eyebrow, r elbow dry red a brasion, reddened buttocks, dry skin to feet and thick toenails, multiple abrasions brown and red to both knees, red scrotum, 1cm x 1cm dry red abrasion left chin, frontal scalp abrasion - MUSCULOSKELETAL/RHEUMATOLOGICAL Hx Musculoskeletal Disorders: Yes Hx Falls: Yes Hx Rhabdomyolysis: Yes Hx Unsteady Gait: Yes (off balance, needs assistance) - GASTROINTESTINAL Hx Gastrointestinal Disorders: Yes (obese) - GENITOURINARY/GYNECOLOGICAL Hx Genitourinary Disorders: Yes Hx Incontinence: Yes - PSYCHIATRIC Hx Substance Use: No Other/Comment: admits to 2 drinks of whiskey yesterday 10/29/18 - SURGICAL HISTORY Hx Surgeries: No - ANESTHESIA Hx Anesthesia: No Hx Anesthesia Reactions: No Hx Malignant Hyperthermia: No Meds Allergies/Adverse Reactions: Allergies Allergy/AdvReac Type Severity Reaction Status Date / Time No Known Allergies Allergy Verified 09/09/18 10:14 - Medications Medications: Current Medications Acetaminophen (Tylenol 325mg Tab) 650 mg PO Q6 PRN PRN Reason: TEMP>=99.5F Acetaminophen (Tylenol 650 Mg Supp) 650 mg RC Q6H PRN PRN Reason: TEMP>=99.5F Aspirin (Ecotrin) 81 mg PO DAILY [facility] Last Admin: 12/01/18 10:50 Dose: 81 mg Chlordiazepoxide (Librium) 50 mg PO Q8H [facility] Last Admin: 12/02/18 00:20 Dose: 50 mg Clonidine HCl (Catapres) 0.1 mg PO Q4H PRN PRN Reason: Symptoms of alcohol withdrawl Last Admin: 12/01/18 17:07 Dose: 0.1 mg Clopidogrel Bisulfate (Plavix) 75 mg PO DAILY [facility] Last Admin: 12/01/18 15:55 Dose: 75 mg Docusate Sodium (Colace) 100 mg PO TID [facility] Last Admin: 12/01/18 17:08 Dose: 100 mg Enoxaparin Sodium (Lovenox) 40 mg SC DAILY [facility]; Protocol Last Admin: 12/01/18 10:49 Dose: 40 mg Ergocalciferol (Drisdol 50,000 Intl Units Cap) 1 cap PO Q7D [facility] Last Admin: 11/30/18 16:13 Dose: 1 cap Folic Acid (Folic Acid) 1 mg PO DAILY [facility] Last Admin: 12/01/18 10:49 Dose: 1 mg Haloperidol Lactate (Haldol) 2 mg IM Q8H PRN PRN Reason: Agitation Sodium Chloride (Sodium Chloride 0.9%) 1,000 mls @ 150 mls/hr IV .Q6H40M [facility] Last Admin: 12/02/18 05:25 Dose: 150 mls/hr Cefepime HCl (Maxipime 1gm) 1 gm in 100 mls @ 100 mls/hr IVPB Q8 [facility]; Protocol Last Admin: 12/02/18 05:26 Dose: 100 mls/hr Lorazepam (Ativan) 1 mg IVP Q4H PRN PRN Reason: Symptoms of alcohol withdrawl Last Admin: 12/01/18 22:24 Dose: 1 mg Multivitamins/Minerals (Therapeutic-M Tab) 1 tab PO DAILY [facility] Last Admin: 12/01/18 10:49 Dose: 1 tab Mupirocin (Bactroban Ointment) 0 gm TOP TID [facility] Last Admin: 12/01/18 17:07 Dose: 1 applic Ondansetron HCl (Zofran Inj) 4 mg IVP Q4H PRN PRN Reason: Nausea/Vomiting Last Admin: 11/30/18 06:48 Dose: 4 mg Pantoprazole Sodium (Protonix Ec Tab) 40 mg PO 0600 [facility] Last Admin: 12/02/18 05:43 Dose: 40 mg Thiamine HCl (Vitamin B1 Tab) 100 mg PO DAILY [facility] Last Admin: 12/01/18 10:49 Dose: 100 mg Zaleplon (Sonata) 5 mg PO HS PRN PRN Reason: Insomnia Physical Exam - Constitutional Appears: Non-toxic, No Acute Distress - Eye Exam Eye Exam: EOMI, Normal appearance, PERRL Pupil Exam: NORMAL ACCOMODATION, PERRL - ENT Exam ENT Exam: Mucous Membranes Moist - Neck Exam Neck exam: Positive for: Full Rom - Respiratory Exam Respiratory Exam: Clear to Auscultation Bilateral, NORMAL BREATHING PATTERN - Cardiovascular Exam Cardiovascular Exam: REGULAR RHYTHM - GI/Abdominal Exam GI & Abdominal Exam: Normal Bowel Sounds, Soft. absent: Tenderness - Neurological Exam Neurological exam: Alert, CN II-XII Intact, Oriented x3, Reflexes Normal - Expanded Neurological Exam Expanded Patient oriented to: person, place, time Cranial nerves: EOM's Intact: Normal, Facial Palsey w/Forehead Movement: Abnormal Left, Facial Palsey w/o Forehead Movement: Abnormal Left, Facial Sensation: Normal, Gag Reflex: Normal, Nystagmus: Normal, Tongue Deviation: Normal Cerebellar Function: Finger to Nose: Normal Upper motor neuron: Babinski Sign: Normal Sensory exam: Lower Extremity Light Touch: Normal, Upper Extremity Light Touch: Normal Neuro motor strength exam: Left Upper Extremity: 5, Right Upper Extremity: 5, Left Lower Extremity: 5, Right Lower Extremity: 5 DTR: Patellar Left: 2+, Patellar Right: 2+ Coma Scale Eye Opening: SPONTANEOUS Coma Scale Motor Response: OBEYS COMMANDS Coma Scale Verbal: Oriented Coma Scale Total: 15 - Psychiatric Exam Psychiatric exam: Normal Affect, Normal Mood - Skin Skin Exam: Dry, Intact, Normal Color, Warm Results - Vital Signs Recent Vital Signs: Last Vital Signs Temp 97.2 F L 12/02/18 08:09 Pulse 78 12/02/18 08:09 Resp 20 12/02/18 08:09 BP 150/77 12/02/18 08:09 Pulse Ox 95 12/02/18 08:09 - Labs Result Diagrams: 12/02/18 07:15 12/02/18 06:20 Labs: Laboratory Results - last 24 hr 11/30/18 12/01/18 12/02/18 04:00 12:45 06:20 WBC RBC Hgb Hct MCV MCH MCHC RDW Plt Count MPV Neut % (Auto) Lymph % (Auto) Treasure % (Auto) Eos % (Auto) Baso % (Auto) Lymph # (Auto) Treasure # (Auto) Eos # (Auto) Baso # (Auto) Absolute Neuts (auto) Sodium 138 Potassium 3.8 Chloride 108 H Carbon Dioxide 24 Anion Gap 9 L BUN 14 Creatinine 0.9 Est GFR ( Amer) > 60 Est GFR (Non-Af Amer) > 60 Random Glucose 100 Calcium 9.0 Phosphorus 3.4 Magnesium 1.9 Total Bilirubin 0.9 Direct Bilirubin 0.2 AST 72 H D ALT 30 Alkaline Phosphatase 70 Total Creatine Kinase 952 H CK-MB (CK-2) 3.2 CK-MB (CK-2) % Cancelled Total Protein 7.0 Albumin 3.9 Globulin 3.1 Albumin/Globulin Ratio 1.3 Lyme Disease IgG Ab (IFA) Positive Lyme Disease IgM Ab Negative Hepatitis A IgM Ab Negative Hep Bs Antigen Negative Hep B Core IgM Ab Negative Hepatitis C Antibody Negative 12/02/18 07:15 WBC 6.5 D RBC 4.35 Hgb 14.4 Hct 41.5 L MCV 95.4 MCH 33.1 MCHC 34.7 RDW 13.3 Plt Count 214 MPV 9.4 Neut % (Auto) 54.5 Lymph % (Auto) 29.9 Treasure % (Auto) 11.6 H Eos % (Auto) 3.7 Baso % (Auto) 0.3 Lymph # (Auto) 1.9 Treasure # (Auto) 0.8 H Eos # (Auto) 0.2 Baso # (Auto) 0.02 Absolute Neuts (auto) 3.54 Sodium Potassium Chloride Carbon Dioxide Anion Gap BUN Creatinine Est GFR ( Amer) Est GFR (Non-Af Amer) Random Glucose Calcium Phosphorus Magnesium Total Bilirubin Direct Bilirubin AST ALT Alkaline Phosphatase Total Creatine Kinase CK-MB (CK-2) CK-MB (CK-2) % Total Protein Albumin Globulin Albumin/Globulin Ratio Lyme Disease IgG Ab (IFA) Lyme Disease IgM Ab Hepatitis A IgM Ab Hep Bs Antigen Hep B Core IgM Ab Hepatitis C Antibody Assessment & Plan - Assessment and Plan (Free Text) Assessment: 68 year old male with a past medical history significant for left sided Helm's Palsy, HTN and chronic alcohol abuse who presents after having syncopal episode and falling at his home. Plan: -MRI Brain showed chronic severe microvascular changes in the periventricular white matter, deep white matter and in the neno; No acute intracranial pathology was appreciated -CT Head showed chronic severe microvascular in the basal ganglia and periventricular white matter; No acute intracranial pathology was appreciated -MRA Head was unremarkable -MRA Neck showed left proximal ICA stenosis >80% over a 12mm segment and 40% stenosis of the right proximal ICA -Carotid US showed left proximal ICA stenosis >80% -Continue daily low dose ASA and Plavix -Continue Vitamin D supplementation -Continue PT; Recommend EARL placement upon discharge -Further recommendations as per Dr. Newby Disposition: Interventional Neurology group contacted and will evaluate patient for possible intervention regarding his carotid stenosis. Patient seen and case discussed with attending, Dr. Newby. Steven Ford PGY2 - Date & Time Date: 12/02/18 Time: 08:35 <Demond Newby - Last Filed: 12/04/18 23:03> Results - Vital Signs Recent Vital Signs: Last Vital Signs Temp 97.4 F L 12/02/18 17:27 Pulse 85 12/02/18 18:00 Resp 19 12/02/18 17:27 BP 171/80 H 12/02/18 17:27 Pulse Ox 95 12/02/18 17:27 - Labs Result Diagrams: 12/02/18 07:15 12/02/18 06:20 Assessment & Plan - Assessment and Plan (Free Text) Assessment: Mr. Byrne appears to have had a syncopal spell and has anormal neurological exam except for bells palsy. I examined the patient independently and formulataed the assessment and plan. I agree with the note above. Thank you Dr. Newby [facility]
[2018-12-02] MEDS: Mupirocin 2% Ointment 15 GM TUBE TOP SCH ×3 (09:02→17:11)
[2018-12-02] MEDS: Enoxaparin 40 mg Syringe SC SCH (09:03)
[2018-12-02] MEDS: Multivitamin With Minerals Tab PO SCH (09:03)
[2018-12-02] MEDS ORDERED: Sodium Chloride 0.9% 1,000 ML IV SCH (12:20)
--- NOTE | 2018-12-02 14:05 | CP.PCM.PN ---
<Velasquez Leonardo - Last Filed: 12/02/18 14:18> Subjective - Date & Time of Evaluation Date of Evaluation: 12/02/18 Time of Evaluation: 14:01 - Subjective Subjective: Velasquez Leonardo DO, PGY-1 Hospitalist Progress Note for Dr. Rojas Patient was seen and examined at bedside this AM. He reports feeling better this AM and has no new complaints. He states he has not had any dizziness, tremor, anxiety, or other withdrawal symptoms. Objective - Vital Signs/Intake and Output Vital Signs (last 24 hours): Temp Pulse Resp BP Pulse Ox 97.2 F L 83 20 150/77 95 12/02/18 08:09 12/02/18 10:00 12/02/18 08:09 12/02/18 08:09 12/02/18 08:09 Intake and Output: 12/02/18 12/02/18 06:59 18:59 Intake Total 2300 Output Total 700 Balance 1600 - Medications Medications: Current Medications Acetaminophen (Tylenol 325mg Tab) 650 mg PO Q6 PRN PRN Reason: TEMP>=99.5F Acetaminophen (Tylenol 650 Mg Supp) 650 mg RC Q6H PRN PRN Reason: TEMP>=99.5F Aspirin (Ecotrin) 81 mg PO DAILY [facility] Last Admin: 12/02/18 09:03 Dose: 81 mg Cephalexin Monohydrate (Keflex) 500 mg PO BID [facility]; Protocol Chlordiazepoxide (Librium) 50 mg PO Q8H [facility] Last Admin: 12/02/18 09:02 Dose: 50 mg Clonidine HCl (Catapres) 0.1 mg PO Q4H PRN PRN Reason: Symptoms of alcohol withdrawl Last Admin: 12/01/18 17:07 Dose: 0.1 mg Clopidogrel Bisulfate (Plavix) 75 mg PO DAILY [facility] Last Admin: 12/02/18 09:02 Dose: 75 mg Docusate Sodium (Colace) 100 mg PO TID [facility] Last Admin: 12/02/18 13:25 Dose: 100 mg Enoxaparin Sodium (Lovenox) 40 mg SC DAILY [facility]; Protocol Last Admin: 12/02/18 09:03 Dose: 40 mg Ergocalciferol (Drisdol 50,000 Intl Units Cap) 1 cap PO Q7D [facility] Last Admin: 11/30/18 16:13 Dose: 1 cap Folic Acid (Folic Acid) 1 mg PO DAILY [facility] Last Admin: 12/02/18 09:03 Dose: 1 mg Haloperidol Lactate (Haldol) 2 mg IM Q8H PRN PRN Reason: Agitation Sodium Chloride (Sodium Chloride 0.9%) 1,000 mls @ 50 mls/hr IV .Q20H [facility] Last Admin: 12/02/18 13:25 Dose: 50 mls/hr Lorazepam (Ativan) 1 mg IVP Q4H PRN PRN Reason: Symptoms of alcohol withdrawl Last Admin: 12/01/18 22:24 Dose: 1 mg Multivitamins/Minerals (Therapeutic-M Tab) 1 tab PO DAILY [facility] Last Admin: 12/02/18 09:03 Dose: 1 tab Mupirocin (Bactroban Ointment) 0 gm TOP TID [facility] Last Admin: 12/02/18 13:25 Dose: 1 applic Ondansetron HCl (Zofran Inj) 4 mg IVP Q4H PRN PRN Reason: Nausea/Vomiting Last Admin: 11/30/18 06:48 Dose: 4 mg Pantoprazole Sodium (Protonix Ec Tab) 40 mg PO 0600 [facility] Last Admin: 12/02/18 05:43 Dose: 40 mg Thiamine HCl (Vitamin B1 Tab) 100 mg PO DAILY [facility] Last Admin: 12/02/18 09:03 Dose: 100 mg Zaleplon (Sonata) 5 mg PO HS PRN PRN Reason: Insomnia - Labs Labs: 12/02/18 07:15 12/02/18 06:20 PT 11.5 SECONDS (9.4-12.5) 11/29/18 20:30 INR 1.04 11/29/18 20:30 APTT 30.8 Seconds (26.9-38.3) 11/29/18 20:30 - Constitutional Appears: Non-toxic, No Acute Distress - Head Exam Head Exam: ATRAUMATIC, NORMOCEPHALIC - Eye Exam Eye Exam: EOMI, PERRL - ENT Exam ENT Exam: Mucous Membranes Moist - Neck Exam Neck Exam: Full ROM, Normal Inspection - Respiratory Exam Respiratory Exam: Clear to Ausculation Bilateral, NORMAL BREATHING PATTERN. absent: Rales, Rhonchi, Wheezes - Cardiovascular Exam Cardiovascular Exam: REGULAR RHYTHM, RRR, +S1, +S2. absent: Gallop, Rubs, Murmur - GI/Abdominal Exam GI & Abdominal Exam: Soft, Normal Bowel Sounds. absent: Guarding, Tenderness, Rebound - Extremities Exam Extremities Exam: Normal Inspection. absent: Pedal Edema - Back Exam Back Exam: NORMAL INSPECTION - Neurological Exam Neurological Exam: Alert, Awake, Normal Gait, Oriented x3 Neuro motor strength exam: Left Upper Extremity: 5, Right Upper Extremity: 5, Left Lower Extremity: 5, Right Lower Extremity: 5 Additional comments: no tremor, seen ambulating from bathroom, no difficulty with ambulation - Psychiatric Exam Psychiatric exam: Normal Affect, Normal Mood - Skin Skin Exam: Dry, Intact, Warm Assessment and Plan - Assessment and Plan (Free Text) Assessment: 68 yo M with PMH of HTN, alcohol dependence, and L-sided Helm's palsy is admitted s/p fall due to EtOH intoxication for management of EtOH withdrawal. Plan: Recent Fall Most likely 2/2 intoxication vs syncope Initial head CT negative for significant trauma MRI brain, MRA head also negative Carotid US found significant proximal L ICA stenosis, also confirmed by neck MRA Neurology consulted who recommend neurointerventionalist evaluation to see if patient is candidate for stent Continue dual anti-platelet ASA, plavix F/u additional neurology recs Rhabdomyolysis Likely 2/2 intoxication CPK 2444 on admission down to 952 this AM May decrease IVF to 50 cc/hr Continue to monitor UOP EtOH withdrawal CIWA scores of 4 overnight Continue scheduled librium per psych recs Continue PRN ativan UTI May switch to PO Keflex 500 mg BID for 3 additional days DVT/GI PPX: Lovenox/protonix Full Code HHD Monitor on remote tele Patient seen, examined, and plan discussed with my attending Dr. Crystal Leonardo, D.O. IM Resident PGY-1 Pager: [phone] <Kari Rojas - Last Filed: 12/02/18 16:39> Objective - Vital Signs/Intake and Output Vital Signs (last 24 hours): Temp Pulse Resp BP Pulse Ox 97.2 F L 83 20 150/77 95 12/02/18 08:09 12/02/18 10:00 12/02/18 08:09 12/02/18 08:09 12/02/18 08:09 Intake and Output: 12/02/18 12/02/18 06:59 18:59 Intake Total 2300 Output Total 700 Balance 1600 - Medications Medications: Current Medications Acetaminophen (Tylenol 325mg Tab) 650 mg PO Q6 PRN PRN Reason: TEMP>=99.5F Acetaminophen (Tylenol 650 Mg Supp) 650 mg RC Q6H PRN PRN Reason: TEMP>=99.5F Aspirin (Ecotrin) 81 mg PO DAILY [facility] Last Admin: 12/02/18 09:03 Dose: 81 mg Cephalexin Monohydrate (Keflex) 500 mg PO BID [facility]; Protocol Chlordiazepoxide (Librium) 50 mg PO Q8H [facility] Last Admin: 12/02/18 16:02 Dose: 50 mg Clonidine HCl (Catapres) 0.1 mg PO Q4H PRN PRN Reason: Symptoms of alcohol withdrawl Last Admin: 12/01/18 17:07 Dose: 0.1 mg Clopidogrel Bisulfate (Plavix) 75 mg PO DAILY [facility] Last Admin: 12/02/18 09:02 Dose: 75 mg Docusate Sodium (Colace) 100 mg PO TID [facility] Last Admin: 12/02/18 13:25 Dose: 100 mg Enoxaparin Sodium (Lovenox) 40 mg SC DAILY [facility]; Protocol Last Admin: 12/02/18 09:03 Dose: 40 mg Ergocalciferol (Drisdol 50,000 Intl Units Cap) 1 cap PO Q7D [facility] Last Admin: 11/30/18 16:13 Dose: 1 cap Folic Acid (Folic Acid) 1 mg PO DAILY [facility] Last Admin: 12/02/18 09:03 Dose: 1 mg Gabapentin (Neurontin) 300 mg PO TID [facility]; Protocol Haloperidol Lactate (Haldol) 2 mg IM Q8H PRN PRN Reason: Agitation Sodium Chloride (Sodium Chloride 0.9%) 1,000 mls @ 50 mls/hr IV .Q20H [facility] Last Admin: 12/02/18 13:25 Dose: 50 mls/hr Lorazepam (Ativan) 1 mg IVP Q4H PRN PRN Reason: Symptoms of alcohol withdrawl Last Admin: 12/01/18 22:24 Dose: 1 mg Multivitamins/Minerals (Therapeutic-M Tab) 1 tab PO DAILY [facility] Last Admin: 12/02/18 09:03 Dose: 1 tab Mupirocin (Bactroban Ointment) 0 gm TOP TID [facility] Last Admin: 12/02/18 13:25 Dose: 1 applic Ondansetron HCl (Zofran Inj) 4 mg IVP Q4H PRN PRN Reason: Nausea/Vomiting Last Admin: 11/30/18 06:48 Dose: 4 mg Pantoprazole Sodium (Protonix Ec Tab) 40 mg PO 0600 [facility] Last Admin: 12/02/18 05:43 Dose: 40 mg Thiamine HCl (Vitamin B1 Tab) 100 mg PO DAILY [facility] Last Admin: 12/02/18 09:03 Dose: 100 mg Zaleplon (Sonata) 5 mg PO HS PRN PRN Reason: Insomnia - Labs Labs: 12/02/18 07:15 12/02/18 06:20 PT 11.5 SECONDS (9.4-12.5) 11/29/18 20:30 INR 1.04 11/29/18 20:30 APTT 30.8 Seconds (26.9-38.3) 11/29/18 20:30 Attending/Attestation - Attestation I have personally seen and examined this patient.: Yes I have fully participated in the care of the patient.: Yes I have reviewed all pertinent clinical information, including history, physical exam and plan: Yes Notes (Text): 12/02/18 16:38 Medical record note made by the resident after discussion with my direction and input after the patient was personally seen and examined by me. I have reviewed the chart and agree that the record accurately reflects by personal performance of the history, physical exam, data review, and medical decision-making, in the course for the patient. I have also personally directed the plan of care. 68 year old male with PMH HTN, alcohol dependence, Helm's palsy, was admitted with H/O fall, likely due to alcohol intoxication,he was also found to have Rhabdomylosis and E coli UTI. Work up revealed left ICA 80% stenosis. Neurology is consulted, need neuro vascular evaluation. CK level is coming down,once CK level is normal, need to start on statin therapy. Continue CIWA Issue of ongoing alcohol abuse and chronic smoking was discussed in detail. Management plan was discussed in detail with patient. Education was provided
--- NOTE | 2018-12-02 16:00 | CP.PCM.CON ---
History of Present Illness - History of Present Illness History of Present Illness: [facility] Dr.Farkas Dr.Arcot Dr.Turkell-Parella Dr.Liff Aleks Cuisierra tucsonlauren MSNA,AGNP-BC, SMUDGER is a 68 year old left hand dominant male. PmHx. left Helm's Palsy, smoking, chronic alcoholism. Pt has not seen a doctor in many years and takes no medication at home. Pt had returned home from work on 11/29/18, had a few drinks and last memory was eating soup. He was found on the floor by his landlord. pt was unable to get himself off the floor d/t generalized weakness. Pt does not recall how he fell. He denies any history of seizure does not recall any tonic clonic movements. CT head no acute intracranial abnormalities.Brain MRI no acute intracranial findings. MRA neck moderate to severe stenosis of proximal left internal carotid over 12mm segment, degree probably greater that 80%. Syncopal episode may be related to alcohol intoxication, alcohol level on admission to ED was 191. Review of Systems - Constitutional Constitutional: As Per HPI (generalized weakness post syncopal episode) Past Patient History - Infectious Disease Hx of Infectious Diseases: None - Tetanus Immunizations Tetanus Immunization: Unknown - Past Medical History & Family History Past Medical History?: Yes - Past Social History Smoking Status: Former Smoker Chewing Tobacco Use: No Cigar Use: Yes (last 25 years 6/day) Alcohol: > 2 Drinks/Day (chronic alcoholism) Home Situation {Lives}: Alone - CARDIAC Hx Hypertension: Yes (untreated ) - PULMONARY Hx Respiratory Disorders: No - NEUROLOGICAL Hx Neurological Disorder: Yes (off balance) Other/Comment: left side of face bells palsey 08/2018 - HEENT Hx HEENT Problems: Yes (pt stated "I need reading glasses.") - RENAL Hx Chronic Kidney Disease: No - ENDOCRINE/METABOLIC Hx Endocrine Disorders: No - HEMATOLOGICAL/ONCOLOGICAL Hx Blood Disorders: No - INTEGUMENTARY Hx Dermatological Problems: Yes Other/Comment: poor hygeine, 1cm round lump on left eyebrow, r elbow dry red abrasion, reddened buttocks, dry skin to feet and thick toenails, multiple abrasions brown and red to both knees, red scrotum, 1cm x 1cm dry red abrasion left chin, frontal scalp abrasion - MUSCULOSKELETAL/RHEUMATOLOGICAL Hx Musculoskeletal Disorders: Yes Hx Falls: Yes Hx Rhabdomyolysis: Yes Hx Unsteady Gait: Yes (off balance, needs assistance) - GASTROINTESTINAL Hx Gastrointestinal Disorders: Yes (obese) - GENITOURINARY/GYNECOLOGICAL Hx Genitourinary Disorders: Yes Hx Incontinence: Yes - PSYCHIATRIC Hx Substance Use: No Other/Comment: admits to 2 drinks of whiskey yesterday 10/29/18 - SURGICAL HISTORY Hx Surgeries: No - ANESTHESIA Hx Anesthesia: No Hx Anesthesia Reactions: No Hx Malignant Hyperthermia: No Meds Allergies/Adverse Reactions: Allergies Allergy/AdvReac Type Severity Reaction Status Date / Time No Known Allergies Allergy Verified 09/09/18 10:14 - Medications Medications: Current Medications Acetaminophen (Tylenol 325mg Tab) 650 mg PO Q6 PRN PRN Reason: TEMP>=99.5F Acetaminophen (Tylenol 650 Mg Supp) 650 mg RC Q6H PRN PRN Reason: TEMP>=99.5F Aspirin (Ecotrin) 81 mg PO DAILY [facility] Last Admin: 12/02/18 09:03 Dose: 81 mg Cephalexin Monohydrate (Keflex) 500 mg PO BID [facility]; Protocol Chlordiazepoxide (Librium) 50 mg PO Q8H [facility] Last Admin: 12/02/18 09:02 Dose: 50 mg Clonidine HCl (Catapres) 0.1 mg PO Q4H PRN PRN Reason: Symptoms of alcohol withdrawl Last Admin: 12/01/18 17:07 Dose: 0.1 mg Clopidogrel Bisulfate (Plavix) 75 mg PO DAILY [facility] Last Admin: 12/02/18 09:02 Dose: 75 mg Docusate Sodium (Colace) 100 mg PO TID [facility] Last Admin: 12/02/18 13:25 Dose: 100 mg Enoxaparin Sodium (Lovenox) 40 mg SC DAILY [facility]; Protocol Last Admin: 12/02/18 09:03 Dose: 40 mg Ergocalciferol (Drisdol 50,000 Intl Units Cap) 1 cap PO Q7D [facility] Last Admin: 11/30/18 16:13 Dose: 1 cap Folic Acid (Folic Acid) 1 mg PO DAILY [facility] Last Admin: 12/02/18 09:03 Dose: 1 mg Gabapentin (Neurontin) 300 mg PO TID [facility]; Protocol Haloperidol Lactate (Haldol) 2 mg IM Q8H PRN PRN Reason: Agitation Sodium Chloride (Sodium Chloride 0.9%) 1,000 mls @ 50 mls/hr IV .Q20H [facility] Last Admin: 12/02/18 13:25 Dose: 50 mls/hr Lorazepam (Ativan) 1 mg IVP Q4H PRN PRN Reason: Symptoms of alcohol withdrawl Last Admin: 12/01/18 22:24 Dose: 1 mg Multivitamins/Minerals (Therapeutic-M Tab) 1 tab PO DAILY [facility] Last Admin: 12/02/18 09:03 Dose: 1 tab Mupirocin (Bactroban Ointment) 0 gm TOP TID [facility] Last Admin: 12/02/18 13:25 Dose: 1 applic Ondansetron HCl (Zofran Inj) 4 mg IVP Q4H PRN PRN Reason: Nausea/Vomiting Last Admin: 11/30/18 06:48 Dose: 4 mg Pantoprazole Sodium (Protonix Ec Tab) 40 mg PO 0600 [facility] Last Admin: 12/02/18 05:43 Dose: 40 mg Thiamine HCl (Vitamin B1 Tab) 100 mg PO DAILY [facility] Last Admin: 12/02/18 09:03 Dose: 100 mg Zaleplon (Sonata) 5 mg PO HS PRN PRN Reason: Insomnia Physical Exam - Constitutional Appears: Unkempt - Head Exam Head Exam: ATRAUMATIC - Eye Exam Eye Exam: PERRL Pupil Exam: NORMAL ACCOMODATION - Neck Exam Neck exam: Positive for: Normal Inspection - Respiratory Exam Respiratory Exam: NORMAL BREATHING PATTERN - Rectal Exam Rectal Exam: Deferred - Extremities Exam Extremities exam: Positive for: joint swelling (right knee edematous s/p fall during syncopal edpisode) - Neurological Exam Neurological exam: Abnormal Gait (balance off), Alert, Oriented x3 - Psychiatric Exam Additional comments: appears mildly sedated is on DT precautions - Skin Skin Exam: Abrasion, Dry Results - Vital Signs Recent Vital Signs: Last Vital Signs Temp 97.2 F L 12/02/18 08:09 Pulse 83 12/02/18 10:00 Resp 20 12/02/18 08:09 BP 150/77 12/02/18 08:09 Pulse Ox 95 12/02/18 08:09 - Labs Result Diagrams: 12/02/18 07:15 02/07/19 06:20 Labs: Laboratory Results - last 24 hr 11/30/18 11/30/18 12/01/18 04:00 04:00 12:45 WBC RBC Hgb Hct MCV MCH MCHC RDW Plt Count MPV Neut % (Auto) Lymph % (Auto) Loup % (Auto) Eos % (Auto) Baso % (Auto) Lymph # (Auto) Loup # (Auto) Eos # (Auto) Baso # (Auto) Absolute Neuts (auto) Sodium Potassium Chloride Carbon Dioxide Anion Gap BUN Creatinine Est GFR ( Amer) Est GFR (Non-Af Amer) Random Glucose Calcium Phosphorus Magnesium Total Bilirubin Direct Bilirubin AST ALT Alkaline Phosphatase Total Creatine Kinase CK-MB (CK-2) CK-MB (CK-2) % Total Protein Albumin Globulin Albumin/Globulin Ratio Lyme Disease Screen <0.90 Lyme Disease IgG Ab (IFA) Positive Lyme Disease IgM Ab Negative Hepatitis A IgM Ab Negative Hep Bs Antigen Negative Hep B Core IgM Ab Negative Hepatitis C Antibody Negative HIV 1&2 Ag/Ab, 4th Gen 12/01/18 12/02/18 12/02/18 12:45 06:20 07:15 WBC 6.5 D RBC 4.35 Hgb 14.4 Hct 41.5 L MCV 95.4 MCH 33.1 MCHC 34.7 RDW 13.3 Plt Count 214 MPV 9.4 Neut % (Auto) 54.5 Lymph % (Auto) 29.9 Loup % (Auto) 11.6 H Eos % (Auto) 3.7 Baso % (Auto) 0.3 Lymph # (Auto) 1.9 Loup # (Auto) 0.8 H Eos # (Auto) 0.2 Baso # (Auto) 0.02 Absolute Neuts (auto) 3.54 Sodium 138 Potassium 3.8 Chloride 108 H Carbon Dioxide 24 Anion Gap 9 L BUN 14 Creatinine 0.9 Est GFR ( Amer) > 60 Est GFR (Non-Af Amer) > 60 Random Glucose 100 Calcium 9.0 Phosphorus 3.4 Magnesium 1.9 Total Bilirubin 0.9 Direct Bilirubin 0.2 AST 72 H D ALT 30 Alkaline Phosphatase 70 Total Creatine Kinase 952 H CK-MB (CK-2) 3.2 CK-MB (CK-2) % Cancelled Total Protein 7.0 Albumin 3.9 Globulin 3.1 Albumin/Globulin Ratio 1.3 Lyme Disease Screen Lyme Disease IgG Ab (IFA) Lyme Disease IgM Ab Hepatitis A IgM Ab Hep Bs Antigen Hep B Core IgM Ab Hepatitis C Antibody HIV 1&2 Ag/Ab, 4th Gen Nonreactive Assessment & Plan - Assessment and Plan (Free Text) Assessment: NEUROLOGICAL EXAM General: awake, sitting up in bed Mental Status: alert and oriented to person, place and time, follows commands, regards on both sides Speech: no dysarthria, speech fluent, Cranial Nerves: PERRL, EOMI, facial asymmetry (h/o left Helm's palsy) Motor: 4/5 left upper extremity, 5/5 left lower extremity, right upper and lower extremity Sensory: Intact bilaterally Coordination: [id number] no dysmetria Gait:deferred 68 year old male pt found on the floor in his home with no recall of how he fell. Multiple abrasions noted chin, bilateral knees. MRA neck moderate to severe stenosis of proximal left internal carotid over 12mm segment. Pt is asymptomatic. Plan: 1-MRI cervical spine without contrast 2-PT/OT 3-suggest neuro checks Q4 hrs 4-continue Plavix and Aspirin 5-continue supportive care 6-If we can be of further assistance please contact us. 45 min spent asessment and plan - Date & Time Date: 12/02/18 Time: 15:00
[2018-12-02 17:15] VITALS: BP 171/80
[2018-12-02 17:29] VITALS: RESP 19; TEMP 97.4
--- NOTE | 2018-12-02 18:01 | PN ---
DATE: 12/02/[address] Mason Adames. SUBJECTIVE: The patient denies any dizziness or headache at this time. PHYSICAL EXAMINATION VITAL SIGNS: Blood pressure 150/77, heart rate 78, temperature 97.2, and respirations 20. HEENT: Bruising is noted in the patient's chin related to his recent syncope. CHEST: Bilateral rhonchi. HEART: S1 and S2, regular. ABDOMEN: Soft. EXTREMITIES: 1+ pitting edema. LABORATORY DATA: Today's hemoglobin and hematocrit 14.4 and 41.5, white count and platelet count are within normal limits. SMA-7: Sodium 138, potassium 3.8, chloride 108, CO2 of 24, glucose 100, BUN 14 and creatinine 0.9. Yesterday's EKG revealed normal sinus rhythm with prolonged QT interval patient once hypokalemic, which can explain the prolongation of the QT interval. Echocardiographic study done 2 days ago revealed mild concentric LVH with normal ejection fraction and normal segmental motion and grade 1 abnormal relaxation pattern. Brain MRI, no acute intracranial findings. Neck MRA, there is moderate to severe stenosis over the proximal left internal carotid artery, probably greater than 80%. Head MRA, unremarkable. ASSESSMENT 1. Syncopal episode. 2. Significant left internal carotid artery stenosis. 3. Chronic obstructive lung disease. 4. Improved hypokalemia. 5. Hypertension. RECOMMENDATIONS: Continue current clonidine 0.1 mg every 4 hours p.r.n,, continue aspirin 81 mg once a day, subcutaneous Lovenox 40 mg once a day, Plavix 75 mg once a day, thiamine at 100 mg once a day. Case was discussed with and Interventional Neurology consult will be requested for possible intervention on the patient's carotid artery stenosis. Cal Crowell MD
[2018-12-02 18:16] VITALS: PULSE 85
--- NOTE | 2018-12-02 20:48 | PN ---
DATE: SUBJECTIVE: The patient was seen and examined today. The patient appears to be alert and oriented, poor personal hygiene. The patient has typical alcoholic habitus. The patient reported that his hands and feet feel like pins and needles and reported that this is not new for him. This copywriter offered Neurontin, the patient agreed. The patient did not take Sonata at the nighttime. This copywriter suggested to take Sonata if experience difficult to fall asleep and to stay asleep. The patient reported that he feels so-so and reported that he has withdrawals tremor, this is very fine tremor in upper extremity, but vital signs are very stable. Vital Signs: Temperature 97.2, pulse is 83, blood pressure 150/77, respirations 20, and oxygen saturation is 95%. Medications: Reviewed. The patient is on antibiotics, Keflex, Librium 50 mg three times a day scheduled, Catapres, Plavix, Colace, Lovenox, Drisdol, folic acid, Neurontin 300 mg started, Haldol 2 mg IV IM every 8 hours as needed, but the patient was not agitated. The patient is on Ativan IV push 1 mg every 4 hours as needed, last time was yesterday, multivitamins, thiamine, folic acid, Zofran, Protonix, sodium chloride, vitamin B1, and Sonata. Labs: Reviewed. White blood cells going down. Chemistry reviewed. The total creatine kinase going down from 2400 to 952. Also urinalysis showed E-coli positive. MENTAL STATUS EXAMINATION: The patient appears to be alert, somewhat pleasant. Intermittent eye contact. Mood described as so-so. Affect was constricted but reactive, mood congruent. Thought process seems to be concrete. Thought content, the patient denied visual, auditory, or tactile hallucinations. Denied paranoid ideation. The patient denied thoughts of harming himself or others. Denied intent or plan. The patient does not appear to be psychotic but somewhat inappropriate. For example, the patient asked this copywriter if she wants to fight with him, but it was a joke but this copywriter thinks that this is an inappropriate joke. Insight and judgment limited into his alcohol addiction problem. Impulses are well controlled. IMPRESSION Alcohol use disorder, rule-out mood disorder related to alcohol consumption. Alcohol withdrawal is under control. PLAN Multivitamins, thiamine, and folic acid. Neurontin started. Sonata as needed for insomnia. Most likely, the patient might benefit from inpatient rehab, but this copywriter doubts that he will agree for that. Meanwhile, counseling provided. We will follow up and advise accordingly. Next followup is Thursday. Thank you very much. Hannah Feliciano MD MTDD
[2018-12-03] MEDS: Pantoprazole 40 mg EC Tab PO SCH (05:38)
--- NOTE | 2018-12-03 06:54 | CP.PCM.PN ---
<Keerthi Sanchez - Last Filed: 12/03/18 06:47> Subjective - Date & Time of Evaluation Date of Evaluation: 12/03/18 Time of Evaluation: 06:47 - Subjective Subjective: PGY-3 for House Doc CC:AKIN S: pt "had things to do" and did not want to stay longer for treatment of etoh w/d, htn, uti. denies any acute complaints O: knows who is president. who this is [facility] walk independently without cane or assist A: AKIN P: Pt understood and appreciate the explanation of his treatments here and the risks of AMA. He said that he will come back to the ED if he didnt feel well. Objective - Vital Signs/Intake and Output Vital Signs (last 24 hours): Temp Pulse Resp BP Pulse Ox 97.4 F L 85 19 171/80 H 95 12/02/18 17:27 12/02/18 18:00 12/02/18 17:27 12/02/18 17:27 12/02/18 17:27 - Medications Medications: Current Medications Acetaminophen (Tylenol 325mg Tab) 650 mg PO Q6 PRN PRN Reason: TEMP>=99.5F Acetaminophen (Tylenol 650 Mg Supp) 650 mg RC Q6H PRN PRN Reason: TEMP>=99.5F Aspirin (Ecotrin) 81 mg PO DAILY [facility] Last Admin: 12/02/18 09:03 Dose: 81 mg Cephalexin Monohydrate (Keflex) 500 mg PO BID [facility]; Protocol Last Admin: 12/02/18 17:11 Dose: 500 mg Chlordiazepoxide (Librium) 50 mg PO Q8H [facility] Last Admin: 12/03/18 01:27 Dose: 50 mg Clonidine HCl (Catapres) 0.1 mg PO Q4H PRN PRN Reason: Symptoms of alcohol withdrawl Last Admin: 12/02/18 17:11 Dose: 0.1 mg Clopidogrel Bisulfate (Plavix) 75 mg PO DAILY [facility] Last Admin: 12/02/18 09:02 Dose: 75 mg Docusate Sodium (Colace) 100 mg PO TID [facility] Last Admin: 12/02/18 17:11 Dose: 100 mg Enoxaparin Sodium (Lovenox) 40 mg SC DAILY [facility]; Protocol Last Admin: 12/02/18 09:03 Dose: 40 mg Ergocalciferol (Drisdol 50,000 Intl Units Cap) 1 cap PO Q7D [facility] Last Admin: 11/30/18 16:13 Dose: 1 cap Folic Acid (Folic Acid) 1 mg PO DAILY [facility] Last Admin: 12/02/18 09:03 Dose: 1 mg Gabapentin (Neurontin) 300 mg PO TID [facility]; Protocol Last Admin: 12/02/18 17:11 Dose: 300 mg Haloperidol Lactate (Haldol) 2 mg IM Q8H PRN PRN Reason: Agitation Sodium Chloride (Sodium Chloride 0.9%) 1,000 mls @ 50 mls/hr IV .Q20H [facility] Last Admin: 12/02/18 13:25 Dose: 50 mls/hr Lorazepam (Ativan) 1 mg IVP Q4H PRN PRN Reason: Symptoms of alcohol withdrawl Last Admin: 12/01/18 22:24 Dose: 1 mg Multivitamins/Minerals (Therapeutic-M Tab) 1 tab PO DAILY [facility] Last Admin: 12/02/18 09:03 Dose: 1 tab Mupirocin (Bactroban Ointment) 0 gm TOP TID [facility] Last Admin: 12/02/18 17:11 Dose: 1 applic Ondansetron HCl (Zofran Inj) 4 mg IVP Q4H PRN PRN Reason: Nausea/Vomiting Last Admin: 11/30/18 06:48 Dose: 4 mg Pantoprazole Sodium (Protonix Ec Tab) 40 mg PO 0600 [facility] Last Admin: 12/03/18 05:38 Dose: Not Given Thiamine HCl (Vitamin B1 Tab) 100 mg PO DAILY [facility] Last Admin: 12/02/18 09:03 Dose: 100 mg Zaleplon (Sonata) 5 mg PO HS PRN PRN Reason: Insomnia Last Admin: 12/02/18 21:07 Dose: 5 mg - Labs Labs: 12/02/18 07:15 12/02/18 06:20 PT 11.5 SECONDS (9.4-12.5) 11/29/18 20:30 INR 1.04 11/29/18 20:30 APTT 30.8 Seconds (26.9-38.3) 11/29/18 20:30 <Quinn Brenner - Last Filed: 12/03/18 22:02> Objective - Vital Signs/Intake and Output Vital Signs (last 24 hours): Temp Pulse Resp BP Pulse Ox 97.4 F L 85 19 171/80 H 95 12/02/18 17:27 12/02/18 18:00 12/02/18 17:27 12/02/18 17:27 12/02/18 17:27 - Labs Labs: 12/02/18 07:15 12/02/18 06:20 PT 11.5 SECONDS (9.4-12.5) 11/29/18 20:30 INR 1.04 11/29/18 20:30 APTT 30.8 Seconds (26.9-38.3) 11/29/18 20:30 Attending/Attestation - Attestation I have personally seen and examined this patient.: Yes I have fully participated in the care of the patient.: Yes I have reviewed all pertinent clinical information, including history, physical exam and plan: Yes
--- NOTE | 2018-12-03 16:03 | CP.PCM.PCO ---
Physician Communication Note - Physician Communication Note Physician Communication Note: pt was d/c
== END 2018-12-03 06:45 | disposition left against medical advice (07) | DRG 770 ==
LOC: ED 19:27 → ERH 11-30 00:06 → 3RNO 11-30 17:15 → ERH 11-30 17:21 → 3RNO 11-30 17:51 → OBSVTOIN 12-02 12:16
PROVIDERS: ADMIT Internal Medicine; ATTEND Internal Medicine
DX: F10.239 Alcohol dependence with withdrawal, unspecified (principal); M62.82 Rhabdomyolysis; I11.9 Hypertensive heart disease without heart failure; I65.22 Occlusion and stenosis of left carotid artery; E66.01 Morbid (severe) obesity due to excess calories; E83.42 Hypomagnesemia; J44.9 Chronic obstructive pulmonary disease, unspecified; F10.229 Alcohol dependence with intoxication, unspecified; Y90.6 Blood alcohol level of 120-199 mg/100 ml; G51.0 Bell's palsy; N39.0 Urinary tract infection, site not specified; B96.20 Unspecified Escherichia coli [E. coli] as the cause of diseases classified elsewhere; E78.00 Pure hypercholesterolemia, unspecified; E78.1 Pure hyperglyceridemia; E55.9 Vitamin D deficiency, unspecified; Z68.36 Body mass index [BMI] 36.0-36.9, adult; S80.211A Abrasion, right knee, initial encounter; S80.212A Abrasion, left knee, initial encounter; S00.03XA Contusion of scalp, initial encounter; W19.XXXA Unspecified fall, initial encounter; E87.6 Hypokalemia; F17.200 Nicotine dependence, unspecified, uncomplicated; Y92.009 Unspecified place in unspecified non-institutional (private) residence as the place of occurrence of the external cause

== ENCOUNTER 2018-12-06 11:04 | Emergency (ER) | payer MEDICARE, OTHER ==
[2018-12-06 11:04] VITALS: BMI 36.5
[2018-12-06 11:20] VITALS: TEMP 98.2
--- NOTE | 2018-12-06 11:32 | ED PDOC ---
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 Patient had a negative MRI on 12/01. Patient informs his facial droop was worse in the past and has improved. Patient states he does not take any medications. Patient denies any fever, chills, nausea, vomiting, diarrhea, back pain, neck pain, dyspnea on exertion, headache, dizziness, or any other complaint. Time/Duration: 4-6 hours Symptom Onset: Sudden Symptom Course: Unchanged Activities at Onset: Light Context: Work Past Medical History - Provider Review Nursing Documentation Reviewed: Yes - Infectious Disease Hx of Infectious Diseases: None - Tetanus Immunization Tetanus Immunization: Unknown - Cardiac Hx Cardiac Disorders: Yes Hx Hypertension: Yes - Pulmonary Hx Respiratory Disorders: No - Neurological Hx Neurological Disorder: Yes (off balance) Other/Comment: left side of face bells palsey 08/2018 - HEENT Hx HEENT Disorder: Yes (pt stated "I need reading glasses.") - Renal Hx Renal Disorder: No - Endocrine/Metabolic Hx Endocrine Disorders: No - Hematological/Oncological Hx Blood Disorders: No - Integumentary Hx Dermatological Disorder: Yes Other/Comment: poor hygeine, 1cm round lump on left eyebrow, r elbow dry red abrasion, reddened buttocks, dry skin to feet and thick toenails, multiple abrasions brown and red to both knees, red scrotum, 1cm x 1cm dry red abrasion left chin, frontal scalp abrasion - Musculoskeletal/Rheumatological Hx Musculoskeletal Disorders: Yes Hx Falls: Yes Hx Rhabdomyolysis: Yes Hx Unsteady Gait: Yes (off balance, needs assistance) - Gastrointestinal Hx Gastrointestinal Disorders: Yes (obese) - Genitourinary/Gynecological Hx Genitourinary Disorders: Yes Hx Incontinence: Yes - Psychiatric Hx Substance Use: No Other/Comment: admits to 2 drinks of whiskey yesterday 10/29/18 - Anesthesia Hx Anesthesia: No Hx Anesthesia Reactions: No Hx Malignant Hyperthermia: No Family/Social History - Physician Review Nursing Documentation Reviewed: Yes Family/Social History: No Known Family HX Smoking Status: Former Smoker Hx Alcohol Use: Yes (daily whiskey) Hx Substance Use: No Allergies/Home Meds Allergies/Adverse Reactions: Allergies No Known Allergies Allergy (Verified 09/09/18 10:14) Review of Systems - Physician Review All systems were reviewed & negative as marked: Yes - Review of Systems Constitutional: absent: Fevers, Night Sweats Cardiovascular: absent: Chest Pain Gastrointestinal: absent: Abdominal Pain, Diarrhea, Nausea, Vomiting Musculoskeletal: absent: Back Pain, Neck Pain Neurological: Facial Droop (left side). absent: Headache, Dizziness Physical Exam Vital Signs Reviewed: Yes Vital Signs Temp Pulse Resp BP Pulse Ox 12/06/18 11:13 98.2 F 98 H 20 188/87 H 98 Temperature: Afebrile Blood Pressure: Hypertensive Pulse: Tachycardic Respiratory Rate: Normal Appearance: Positive for: Well-Appearing, Non-Toxic, Comfortable Pain Distress: None Mental Status: Positive for: Alert and Oriented X 3 - Systems Exam Head: Present: Atraumatic, Normocephalic Pupils: Present: PERRL Extroacular Muscles: Present: EOMI Conjunctiva: Present: Normal Mouth: Present: Moist Mucous Membranes Neck: Present: Normal Range of Motion Respiratory/Chest: Present: Clear to Auscultation, Good Air Exchange. No: Respiratory Distress, Accessory Muscle Use Cardiovascular: Present: Regular Rate and Rhythm, Normal S1, S2. No: Murmurs Abdomen: No: Tenderness, Distention, Peritoneal Signs Back: Present: Normal Inspection Upper Extremity: Present: Normal Inspection. No: Cyanosis, Edema Lower Extremity: Present: Normal Inspection. No: Edema Neurological: Present: GCS=15, Speech Normal, Other (no left-sided facial droop without forehead sparing) Skin: Present: Warm, Dry, Normal Color. No: Rashes Psychiatric: Present: Alert, Oriented x 3, Normal Insight, Normal Concentration Medical Decision Making ED Course and Treatment: 12/06/18 11:04 Impression: Patient is a 68 year old male who presents to the emergency department with complaints of facial droop (worse than baseline). Plan: -- Labs -- Zovirax -- predniSONE -- Reassess and Disposition Progress: 12/06/18 16:11 exam consistent iwomer pascal. recent quynh neg other aggarwal neuro intact. no forehead sparing. no clinical suspcion for cva. advise outpt fu. - Scribe Statement The provider has reviewed the documentation as recorded by the Scribe Devan Galeas All medical record entries made by the Scribe were at my direction and personally dictated by me. I have reviewed the chart and agree that the record accurately reflects my personal performance of the history, physical exam, medical decision making, and the department course for this patient. I have also personally directed, reviewed, and agree with the discharge instructions and disposition. Disposition/Present on Arrival - Present on Arrival Any Indicators Present on Arrival: No History of DVT/PE: No History of Uncontrolled Diabetes: No Urinary Catheter: No History of Decub. Ulcer: No History Surgical Site Infection Following: None - Disposition Have Diagnosis and Disposition been Completed?: Yes Diagnosis: Helm's palsy Disposition: HOME/ ROUTINE Disposition Time: 13:00 Condition: STABLE Discharge Instructions (ExitCare): Helm's Palsy (DC) Additional Instructions: you will n eed further workup and testing as an outpatient. return to any er with worsening symptoms or concerns. Referrals: Fritz Masterson MD [Staff Provider] - Follow up with primary Heber Liang MD [Staff Provider] - Follow up with primary Jay Peña MD [Staff Provider] - Follow up with primary Forms: [employer] (Montenegrin)
[2018-12-06 13:32] VITALS: BP 148/83; PULSE 88; RESP 18; O2SAT 95
== END 2018-12-06 13:32 | disposition home or self-care (01) ==
LOC: ED 11:04
DX: G51.0 Bell's palsy (principal); I10 Essential (primary) hypertension; Z87.891 Personal history of nicotine dependence
CPT/HCPCS: 99284; J8499

== ENCOUNTER 2018-12-29 15:37 | Inpatient (IN) | payer MEDICAID, OTHER | END 2019-01-07 17:38 | disposition home or self-care (01) | LOC: 2RSO 12-30 00:58 → 3RNO 12-31 17:51 → ED 15:37 → ERH 18:26 ==

== ENCOUNTER 2019-02-14 09:15 | Outpatient (CLI) | payer OTHER | END 2019-02-14 09:16 | disposition home or self-care (01) | LOC: LAB 09:15 ==